=== PATIENT | female | born 1950 | race Caucasian/White ===

== ENCOUNTER 2016-11-09 15:21 | Inpatient (IN) | payer MEDICARE, MEDICAID ==
[~2016-11-09] VITALS: Ht 157.5 cm; Wt 95.2 kg
--- NOTE | ~2016-11-09 | ER ---
PATIENT'S NAME: [facility] AGE: 66 Y [address] ROOM: [place] [address] LOCATION: [facility] ADMIT DATE: 11/09/2016 ER/Outpatient Report DISCHARGE DATE: FAMILY PHYSICIAN: Epifanio Wheeler MD ATTENDING PHYSICIAN: Yohana Ramos Time of Arrival: 1522 hours. Time of Evaluation: 1535 hours. CHIEF COMPLAINT: Shortness of breath. HISTORY OF PRESENT ILLNESS: The patient states she just does not feel like she can get a deep breath, started yesterday. Has had some generalized discomfort in her chest when she goes to take a deep breath. States it is not chest pain, it is just I feel like I cannot get a deep breath in. Has a cough, nonproductive. States that she feels really wore out. States she recently had pneumonia, was seen here on 10/20/2016, was home on antibiotics, and was cleared to have surgery, and on 10/28/2016, she had a total hysterectomy done at [facility] in [place]. States that she is doing well with that, seemed to be doing much better until this episode started last night. She denies feeling febrile. Has not had any change in bowel or bladder pattern. Has not had any leakage from the incisional sites. ALLERGIES: SULFA. CURRENT MEDICATIONS: On her chart and reviewed by me. PAST MEDICAL HISTORY: Recent pneumonia, hypertension, depression, Raynaud syndrome, and uterine cancer. PAST SURGERIES: Total hysterectomy. REVIEW OF SYSTEMS: All negative other than those mentioned in the HPI. PHYSICAL EXAMINATION: VITAL SIGNS: She weighed 103.7 kg. Blood pressure was 171/71, pulse of 83, respirations 20, temperature of 99.4 tympanic, and O2 saturation was 93% on room air. PATIENT'S NAME: [facility] AGE: 66 Y [address] ROOM: [place] [address] LOCATION: [facility] ADMIT DATE: 11/09/2016 ER/Outpatient Report DISCHARGE DATE: FAMILY PHYSICIAN: Epifanio Wheeler MD ATTENDING PHYSICIAN: Yohana Ramos GENERAL: She is awake, alert, and oriented x4. SKIN: Veazie, warm, and dry. RESPIRATIONS: Even and nonlabored. Nasal is boggy. Oropharynx is clear. NECK: Supple. No lymphadenopathy. LUNGS: Lung sounds are clear throughout. HEART: Regular rate and rhythm. ABDOMEN: Soft, nondistended. Bowel sounds are present. Abdominal puncture sites are non-reddened. Dressings are intact. No drainage noted. EMERGENCY ROOM COURSE: Saline lock was initiated. Lab work was drawn. CBC is within normal limits. Chem panel: Sodium is 145, potassium is 3.3, chloride is 112, BUN is 8, creatinine is 1. GFR was 56. D-dimer was 6.81. Radiologist reports on the chest x-ray that looked like she had increased fluid. On the CT scan, the radiologist reports that she did not have pulmonary emboli. However, she did have a large pleural effusion than what she had on 10/20/2016. She has pulmonary edema and ascites. On lab work, her liver enzymes are all within normal with a total bilirubin of 0.3. We had started some fluids on her after the CT because of her GFR being 56. We did turn that down and gave her Lasix 40 mg IV and potassium 40 mg p.o. Her proBNP was elevated at 1585. I did call Dr. Wheeler and talk with him regarding the patient. The patient was given the option of either going home on Lasix and seeing him tomorrow per his request or she could be admitted and he would take care of her in the hospital. The patient states that she prefers to stay here in the hospital. IMPRESSION: Pulmonary edema, pleural effusion. PLAN: The patient will be placed in observation for care of Dr. Wheeler. BRENNEN GERBER APRN FOR MD JAMES SOUSA/aakash /[id number] d: 11/10/16212 t: 11/24/16 0702, OUTPATIENT REPORT
--- NOTE | ~2016-11-09 | HP ---
PATIENT'S NAME: RENETTA SALASARA [facility] AGE: 66 Y [address] ROOM: [place] [address] LOCATION: [facility] ADMIT DATE: 11/10/2016 History & Physical DISCHARGE DATE: FAMILY PHYSICIAN: QUIQUE ORTIZ MD ATTENDING PHYSICIAN: QUIQUE ORTIZ DATE OF SERVICE: 11/09/2016 CHIEF COMPLAINT: Shortness of breath. HISTORY OF PRESENT ILLNESS: The patient is a 66 year old single white female who just took a trip down to [place] and had her uterus removed for uterine cancer. She presents to the emergency room today complaining of shortness of breath. She was seen by the nurse practitioner here and was found to have on chest x-ray a suggestion of fluid so a CAT scan was done because her D-dimer . Her CAT scan does not reveal pulmonary embolus but rather little bit of fluid in her lower lung palomo. No jennie pneumonia but possibly ascites or postop fluid in her belly. My clinical impression is when I see in the emergency room is that she may have developed some congestive heart failure. So, we will admit her to the hospital and obtain cardiac consultation. She understands and wishes to stay in the hospital. I talked to Dr. Jarrell, the ex assistant/program director with [facility] and the patient has had a nice response to diuretic. The patient will be admitted to PCU overnight and we will reassess in the morning. An echocardiogram has been ordered per the ex assistant/program director. When I see her, she does not give a history of fever. She does not know her exact path report postop with her hysterectomy. She has not had any history of asthma that I know of where she has never had a history congestive heart failure prior to this time. MEDICINES: Reviewed. ALLERGIES: NOTED. SOCIAL HISTORY: Doesn't smoke. PATIENT'S NAME: RENETTA SALASARA [facility] AGE: 66 Y [address] ROOM: [place] [address] LOCATION: GPCU ADMIT DATE: 11/10/2016 History & Physical DISCHARGE DATE: FAMILY PHYSICIAN: QUIQUE ORTIZ MD ATTENDING PHYSICIAN: QUIQUE ORTIZ FAMILY HISTORY: See nurse's notes. IMMUNIZATIONS: I believe she is up-to-date. We will check the office records. REVIEW OF SYSTEMS: HEENT: She has had no recent visual changes. She does wear glasses. ENDOCRINE: See nurse's notes. LUNGS: As above. HEART: As above. GI: No recent nausea, vomiting, diarrhea, or melena. : As above. EXTREMITIES: Show trace edema that looks new. NEUROLOGIC: No prior history of stroke or seizure. PHYSICAL EXAMINATION: GENERAL: Middle-aged white female, lying on the cart in the hospital ER. She is oriented to person, place, and time, and I believe to be confident. HEENT: Shows her to wear glasses. Her pupils react to light. TMs not visualized. Posterior pharynx shows mucous membranes are moist. NECK: Unremarkable. I do not see any jennie JVD. LUNGS: Show decreased breath sounds. HEART: Shows regular rhythm without murmur or rub. ABDOMEN: Mildly obese. I did not check her wound. PELVIC AND RECTAL: Not done. EXTREMITIES: Show trace edema. Pulses intact. NEUROLOGIC: Shows cranial nerves intact. No lateralizing signs. ASSESSMENT: Acute dyspnea with increased fluid in lung palomo consistent with new-onset congestive heart failure, type unspecified, probably mixed. PLAN: Per history. QUIQUE ORTIZ MD TOBY MAKER/modl /[id number] D: T: 034 HISTORY & PHYSICAL
--- NOTE | ~2016-11-09 | ECHO ---
Transthoracic Echocardiography Report (TTE) Demographics Patient Name DELON SALAS Date of Study 11/10/2016 Patient Number [id number] Visit Number [id number] Date of 1950 Room Number G6315 Gender Female Number Age 66 year(s) Referring [employer] Business Process Architect Jennie Dubose [facility] Physician MD Wesly Mcdonough MD Physician Interpreting Wesly Garces Director Veterinary Physician Supervising Ordering Wesly Garces MD/MLP Physician Nurse Stress Optical Glass Etcher Conclusions Contractility Score Summary Normal Left Ventricular contractility was noted. Summary Normal LV/RV size and systolic function. The estimated left ventricular ejection fraction is 65-70%. Mild concentric left ventricular hypertrophy. Diastolic assessment reveals Grade II pseudonormal diastolic function . The left atrium is mildly dilated. Dilated IVC with poor inspiratory collapse consistent with elevated RA pressure. There is mild pulmonary hypertension. The pulmonary pressure (RVSP) is 47 mmHg. Mild mitral regurgitation by color Doppler. Procedure Type of Study TTE procedure:2D Echocardiogram, M-Mode, Doppler , Color Doppler. Procedure Date Date: 11/10/2016 Start: 07:37 AM Study Location: Inpatient Portable Technical Quality: Adequate visualization Indications:Congestive heart failure and Shortness of breath. Appropriate Use Criteria: 9 Patient Status: Routine HR: 73 bpm BP: 153/81 mmHg M-Mode/2D Measurements LV Diastolic Dimension: 5.21 cm LV Systolic Dimension: 3.2 cm LV Septum Diastolic: 1.13 cm LV PW Diastolic: 1.19 cm AO Root Dimension: 2.7 cm Cardiac Output: 4.32 l/min AV Cusp Separation: 1.5 cm RV Diastolic Dimension: 2.6 cm LA volume: 78 ml LVOT: 1.7 cm RV Base: 3.45 cm LVOT VTI: 26.1 cm RV Mid: 2.95 cm LV Stroke volume: 59.21 ml TAPSE: 2.24 cm TDI-S': 13.7 cm/s Doppler Measurements AV Peak Velocity: 1.5 m/s MV Peak E-Wave: 1.4 m/s AV Peak Gradient: 9 mmHg MV Peak A-Wave: 0.69 m/s AV Mean Gradient: 4 mmHg MV E/A Ratio: 2.03 LVOT Peak Velocity: 1.28 m/s MV P1/2t: 49 msec TR Gradient:31.58 mmHg PV Peak Velocity: 1.08 m/s Estimated RAP:15 mmHg PV Peak Gradient: 4.67 mmHg Estimated RVSP: 47 mmHg Estimated PASP: 46.58 mmHg E' Septal Velocity: 0.07 m/s A' Septal Velocity: 0.05 m/s E' Lateral Velocity: 0.06 m/s A' Lateral Velocity: 0.05 m/s Findings Left Ventricle The left ventricle is normal in size . Mild concentric left ventricular hypertrophy. Diastolic assessment reveals Grade II pseudonormal diastolic function . Right Ventricle Normal right ventricle structure and function. Left Atrium The left atrium is mildly dilated. Right Atrium Normal right atrial size. Dilated IVC with poor inspiratory collapse consistent with elevated RA pressure. IVC measures 2.2 cms. Mitral Valve Mild mitral annular calcification. Mild mitral regurgitation by color Doppler. Aortic Valve Normal aortic valve structure and function. Tricuspid Valve Normal tricuspid valve structure and function. Mild tricuspid regurgitation by color Doppler. There is mild pulmonary hypertension. The pulmonary pressure (RVSP) is 47 mmHg. Pulmonic Valve The pulmonic valve is not well visualized. Pericardial Effusion No evidence of pericardial effusion. Miscellaneous Visualized portions of the aortic root and ascending aorta appear normal in size. Pleural Effusion No evidence of pleural effusion. Contractility Score LV regional wall motion:(0-Non visualized 1-Normal 2-Hypokinesis 3-Akinesis 4-Dyskinesis 5-Aneurysm) Signature dtt: NAVEEN HEBERT dtd: 11/10/16 0737 Physician Self Edit
--- NOTE | ~2016-11-09 | CON ---
PATIENT'S NAME: [facility] AGE: 66 Y [address] ROOM: [address] [place], [place] [address] LOCATION: GPCU ADMIT DATE: 11/09/2016 Consultation DISCHARGE DATE: FAMILY PHYSICIAN: QUIQUE WHEELER MD ATTENDING PHYSICIAN: QUIQUE WHEELER DATE OF CONSULTATION: 11/09/2016 REFERRING PHYSICIAN: Quique Wheeler MD REASON FOR CONSULTATION: Shortness of breath. HISTORY OF PRESENTING ILLNESS: The patient is a very pleasant, 66-year-old female, who has history of diabetes mellitus and hypertension. She also was recently diagnosed with uterine cancer, status post laparoscopic hysterectomy just a few weeks ago at [place]. The patient came into the emergency room on October 31 with complaints of shortness of breath and she was treated with acute bronchitis and URI and started on Z-Lamont and she completed a course of that. She comes back in today with complaints of worsening shortness of breath as well as dyspnea on exertion and inability to lay flat due to shortness of breath as well as weight gain for the past week or so. Her symptoms of shortness of breath have been significantly worse in the past 1-2 days. She reports she has been taking ibuprofen 800 mg 3 times a day for pain control after her hysterectomy. She also reports increasing her salt intake, has been drinking a lot of canned soup in the recent past. No other new medications started. She does not have any fever, chills, abdominal pain, nausea, vomiting, diarrhea, constipation, skin rashes, or stroke-like symptoms. No chest pain, tightness, pressure, or heaviness. She does not have any other acute complaints today. She has gained about 5 pounds in the recent past. Her baseline weight is about 214 and she weighs 219 pounds today. She is diuresing very well with 40 mg of IV Lasix that was given in the emergency room. REVIEW OF SYSTEMS: A 10-point review of systems discussed with patient. Pertinent positives and negatives mentioned in the history of presenting illness. ALLERGIES: SULFA CAUSES RASH. HOME MEDICATIONS: 1. Lortab 1-2 tablets q.4 hours p.r.n. pain. 2. Ibuprofen 800 q.8 hours p.r.n. pain. PATIENT'S NAME: [facility] AGE: 66 Y [address] ROOM: [id number] [place], [place] [address] LOCATION: GPCU ADMIT DATE: 11/09/2016 Consultation DISCHARGE DATE: FAMILY PHYSICIAN: QUIQUE WHEELER MD ATTENDING PHYSICIAN: QUIQUE WHEELER 3. Pravachol 40 mg p.o. daily. 4. Celexa 20 mg p.o. daily. 5. Atenolol 50 mg p.o. b.i.d. 6. Neurontin 300 mg p.o. b.i.d. 7. Trazodone 100 mg at bedtime p.r.n. 8. She is on alogliptin and pioglitazone tablet 25-30 mg p.o. daily. 9. She is on vitamin D3 2000 daily. 10. MiraLAX p.r.n. PAST MEDICAL HISTORY: Hypertension; depression; Raynaud's; and recent diagnosis of cancer of the uterus, suspected endometrial carcinoma, status post hysterectomy. SOCIAL HISTORY: She drinks socially. No history of alcohol or illicit drug abuse. No history of tobacco abuse. FAMILY HISTORY: There is no premature coronary artery disease or sudden cardiac . PHYSICAL EXAMINATION: VITAL SIGNS: Blood pressure 140/80, O2 saturations 100% on 2 L of oxygen, and respirations 16. She is not in any pain and she is afebrile. GENERAL: The patient is not in any apparent distress. The patient is alert and oriented to time, place, and person. She is not in any apparent distress. NECK: Supple. No JVD. SKIN: Warm and dry. LUNGS: Decreased breath sounds in the right base, decreased air exchange bilaterally. HEART: S1-S2, regular rate and rhythm. No murmurs, gallops, or rubs. ABDOMEN: Obese. Bowel sounds positive. Soft. EXTREMITIES: 3+ bilateral pitting edema. EYES: Sclera white. Eyes, no xanthelasma. MUSCULOSKELETAL: Joints, without any significant swelling. NEURO: Grossly normal. Able to move all extremities against gravity. LABORATORY DATA: Sodium 145, potassium 3.3, chloride 112, CO2 23, BUN 8, and creatinine 1, alkaline phosphatase 63, AST 12, ALT 14, and GFR 56. Amylase 74. ProBNP is elevated at 1585. WBC 9.5, H and H 10.3 and 34.5, platelets are 352. A CT scan of the chest shows no PE, however, she does have a small indeterminate right middle lobe pulmonary nodule. Recommend followup in 3-6 months. Edema, fluid overload has increased compared to 2 weeks ago. EKG pending. PATIENT'S NAME: DELON SALAS [facility] AGE: 66 Y [address] ROOM: [place] [address] LOCATION: GPCU ADMIT DATE: 11/09/2016 Consultation DISCHARGE DATE: FAMILY PHYSICIAN: QUIQUE WHEELER MD ATTENDING PHYSICIAN: QUIQUE WHEELER IMPRESSION AND PLAN: 1. Acute congestive heart failure exacerbation with evidence of volume overload with [place] Heart Association class III symptoms. We do not have a prior echocardiogram and her left ventricular systolic function is not known. At this time, I think she went into the CHF given her increased intake of ibuprofen as well as salt intake; post surgery, she has gained 5 pounds; she describes classic symptoms of heart failure with shortness of breath, dyspnea on exertion, orthopnea, lower extremity edema, as well as weight gain. If her LV systolic function is low, it may be reasonable to stop the pioglitazone as that can exacerbate CHF. She needs to completely avoid ibuprofen and NSAIDs at this time. Pain controlled with Tylenol and narcotics as necessary. I will also rule her out MD, but however, I do not suspect any significant obstructive coronary artery disease. She really denies any anginal symptoms. I will review the ECG once it is done. We will get serial enzymes and get an echocardiogram to assess her LV systolic function as well as her valves in the morning. 2. I will replace her potassium that is slightly low and we will continue diuresis with 40 mg of Lasix and see how she does. 3. History of uterine/endometrial carcinoma, status post surgery. 4. Hypokalemia. We will replace her potassium. 5. Diabetes mellitus. Continue home medications. We will check an A1c in the morning. 6. ECG is normal sinus rhythm today without any evidence of ischemia or injury pattern. Her QTc is slightly prolonged at 454 milliseconds. We will continue to follow the patient along with you. Thank you very much, Dr. Wheeler, for allowing us to participate in the care of Mrs. Salas. NAVEEN MD ABDIFATAH HEBERT/aakash /[id number] d: 11/10/16 0335 t: 11/15/16 1734, CONSULTATION REPORT
--- NOTE | ~2016-11-09 | DS ---
PATIENT'S NAME: GERRI SALAS [facility] AGE: 66 Y [address] ROOM: [address] [place], [place] [address] LOCATION: GPCU ADMIT DATE: 11/10/2016 Discharge Summary DISCHARGE DATE: 11/12/2016 FAMILY PHYSICIAN: Quique Ortiz MD ATTENDING PHYSICIAN: Quique Ortiz FINAL DIAGNOSES: 1. Acute dyspnea secondary to acute diastolic congestive heart failure, new diagnosis, functional class III. 2. Recent uterine surgery, diagnosed with uterine cancer, see path report. 3. Diabetes mellitus type 2, treated with oral agents. 4. Hyperlipidemia by history. 5. Major depression, in remission. 6. Hypokalemia, replaced. 7. Raynaud phenomenon. HOSPITAL COURSE: Gerri is a 66-year-old white female whom I have known for years, who was admitted to the hospital for acute dyspnea. I asked for cardiac consultation and Dr. Avalos, the certified nuclear medicine technologist from [facility], saw the patient along with her physician dietary assistant. Please see notes on the chart. 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 The patient was treated with IV diuresis, her beta-nini was changed to Toprol-XL and she was started on an LEANDRO inhibitor. She responded well, lost about 10 or 12 pounds of fluid. Prior to going to the home, she is ambulating without symptoms. Her O2 saturation is normal. She is much less dyspneic. She is dismissed on the med list shown including a new LEANDRO inhibitor, diuretic, and potassium replacement. She will see me in the office in [address] week[address] see Dr[address] Avalos, the certified nuclear medicine technologist, back in [address] Avalos's notes on the chart, dictation and echocardiogram report which I have not read yet. If she has increasing shortness of breath, leg cramps, or fatigue, she is to be seen back earlier and she understands. QUIQUE ORTIZ MD INFORMATICS SPECIALIST/markl PATIENT'S NAME: GERRI SALAS [facility] AGE: 66 Y [address] ROOM: [place] [address] [facility] ADMIT DATE: 11/10/2016 Discharge Summary DISCHARGE DATE: 11/12/2016 FAMILY PHYSICIAN: Quique Ortiz MD ATTENDING PHYSICIAN: Quique Ortiz /[id number] d: 11/12/16 1054 t: 11/13/16 1036, DISCHARGE SUMMARY
[2016-11-09 16:00] LABS: BASOPHIL % 0.3 %; EOSINOPHIL # 0.1 K/uL (0.0-0.5); EOSINOPHIL % 0.6 %; HEMATOCRIT 34.5 % (33.0-46.0); HEMOGLOBIN 10.3 g/dL (10.0-15.0); IMMATURE GRANULOCYTE # 0.1 K/uL (0.0-0.3); IMMATURE GRANULOCYTE % 0.7 %; LYMPHOCYTE # 0.9 K/uL (0.8-4.0); LYMPHOCYTE % 9.9 %; MCH 23.6 pg (27.0-34.0); MCHC 29.9 gm/dL (32.0-36.5); MCV 79.1 fl (83.0-98.0); MONOCYTE # 0.5 K/uL (0.0-1.0); MONOCYTE % 5.3 %; MPV 10.4 fl (9.4-12.4); NEUTROPHIL # (ANC) 7.9 K/uL (1.8-7.8); NEUTROPHIL % 83.2 %; NRBC % 0 /100WBC (0-0.00); PLATELET COUNT 352 K/uL (150-450); RBC 4.36 M/uL (3.50-5.50); WBC 9.5 K/uL (4.0-11.0)
[2016-11-09 16:16] LABS: ALBUMIN 2.6 gm/dL (3.5-5.0); ANION GAP 13.3 (10.0-19.0); CALCIUM 8.2 mg/dL (8.5-10.5); POTASSIUM 3.3 mMol/L (3.7-5.1); TOTAL PROTEIN 6.4 g/dL (6.0-8.4)
[2016-11-09 16:17] LABS: TOTAL BILIRUBIN 0.3 mg/dL (0.0-1.5)
[2016-11-09] MEDS ORDERED: NORCO 5-325 TA1 EACH PO (19:49)
[2016-11-09] MEDS ORDERED: PRAVACHOL40 MG PO (19:50)
[2016-11-09] MEDS ORDERED: CELEXA20 MG PO (19:50)
[2016-11-09] MEDS ORDERED: IBUPROFEN800 MG PO (19:50)
[2016-11-09] MEDS ORDERED: TENORMIN50 MG PO (19:50)
[2016-11-09] MEDS ORDERED: NEURONTIN300 MG PO (19:51)
[2016-11-09] MEDS ORDERED: GABAPENTIN300 MG PO (19:51)
[2016-11-09] MEDS ORDERED: TRAZODONE HCL100 MG PO (19:52)
[2016-11-09] MEDS ORDERED: OSENI 25-30 MG1 EACH PO (19:52)
[2016-11-09] MEDS ORDERED: VITAMIN D-32000 UNI1 PO (19:52)
[2016-11-09] MEDS ORDERED: EYE VITAMIN-MI1 EACH PO (19:53)
[2016-11-09] MEDS ORDERED: SYSTANE ULTRA 010 ML OPHTH (20:11)
[2016-11-09 22:15] LABS: CPK 34 IU/L (21-215)
[2016-11-10 04:54] LABS: ALBUMIN 2.5 gm/dL (3.5-5.0); ALK PHOS 59 IU/L (33-138); ALT 14 IU/L (12-78); ANION GAP 12.7 (10.0-19.0); AST 13 IU/L (10-40); BLOOD UREA NITROGEN 8 mg/dL (6-24); CALCIUM 8.3 mg/dL (8.5-10.5); CHLORIDE 111 mMol/L (96-110); CO2 25 mMol/L (22-32); CPK 36 IU/L (21-215); ESTIMATED GFR (MDRD EQUATION) 56; POTASSIUM 3.7 mMol/L (3.7-5.1); SODIUM 145 mMol/L (135-145); TOTAL PROTEIN 6.1 g/dL (6.0-8.4)
[2016-11-10 04:56] LABS: TOTAL BILIRUBIN 0.4 mg/dL (0.0-1.5)
[2016-11-11 04:27] LABS: ANION GAP 12.7 (10.0-19.0); CALCIUM 8.4 mg/dL (8.5-10.5); CREATININE 1.1 mg/dL (0.5-1.1); POTASSIUM 3.7 mMol/L (3.7-5.1)
[2016-11-12 04:26] LABS: ANION GAP 13.6 (10.0-19.0); CALCIUM 8.6 mg/dL (8.5-10.5); POTASSIUM 3.6 mMol/L (3.7-5.1)
[2016-11-12] MEDS ORDERED: LASIX20 MG PO (10:49)
[2016-11-12] MEDS ORDERED: ZESTRIL2.5 MG PO (10:50)
[2016-11-12] MEDS ORDERED: TOPROL XL 5050 MG PO (10:50)
[2016-11-12] MEDS ORDERED: K-TAB 10MEQ10 MEQ PO (10:51)
[2016-11-12] MEDS ORDERED: TEARS AGAIN EYE5 GM (10:58)
== END 2016-11-12 11:55 | disposition disaster alternative care site (69) | DRG 292 ==
LOC: GMED 15:21 → GPCU 18:53
PROVIDERS: Internal Medicine Interventional Cardiology; Nurse Practitioner Family; ADMIT Family Medicine
DX: I50.31 Acute diastolic (congestive) heart failure (principal); Z68.41 Body mass index [BMI] 40.0-44.9, adult; I10 Essential (primary) hypertension; E11.9 Type 2 diabetes mellitus without complications; D64.9 Anemia, unspecified; E78.5 Hyperlipidemia, unspecified; Z85.42 Personal history of malignant neoplasm of other parts of uterus; I73.00 Raynaud's syndrome without gangrene; E87.6 Hypokalemia; E66.01 Morbid (severe) obesity due to excess calories
CPT/HCPCS: G0378; J1940; J7030

== ENCOUNTER 2017-03-24 12:30 | Inpatient (IN) | payer MEDICARE, MEDICAID ==
[~2017-03-24] VITALS: Ht 152.4 cm; Wt 67.4 kg
--- NOTE | ~2017-03-24 | HP ---
PATIENT'S NAME: DELON SALAS [facility] AGE: 67 Y [address] ROOM: [id number] [place], [place] [address] [place] [facility] [place]: 03/24/2017 History & Physical DISCHARGE DATE: FAMILY PHYSICIAN: QUIQUE WHEELER MD ATTENDING PHYSICIAN: Bhavana VELAZQUEZ DATE OF SERVICE: CHIEF COMPLAINT: C. diff. HISTORY OF PRESENT ILLNESS: The patient is a 67-year-old female with past medical history of recently diagnosed endometrial carcinoma, stage III, status posterior MAGED/BSO and chemotherapy with carboplatin and Taxol, who presents here with failed outpatient treatment of C. diff. The patient reports that she was diagnosed with C. difficile after she was complaining of diarrhea. The patient was started on Flagyl on 03/03/2017 with 500 mg t.i.d. for 10 days. However, symptoms did not improve and the patient continued to have diarrhea. The patient was seen by Dr. Patrick' office yesterday on March 23, 2017, and was restarted back on Flagyl 500 mg t.i.d. However, the patient continued to have diarrhea, generalized fatigue, and dehydration. The patient was also noted to have hypokalemia and was treated at Dr. Patrick' office with IV potassium. The patient presented to Oncology office, the patient was seen by the Dr. Estes today. The patient once again was noted to be dehydrated and was given 1 L normal saline bolus, magnesium was found to be 1.6, and potassium was found to be 2.4. The patient got 20 mEq of IV potassium and was admitted directly from Dr. Estes's office, as the patient has failed outpatient treatment for C. diff. The patient reports that she has close to 6-7 episodes of diarrhea a day. She denies any blood in diarrhea. She reports that she has been really fatigued and unstable with her gait. The patient lives by herself and reports that she is not able to take care of herself and has not had a bath for quite a while. The patient denies fever, chills, chest pain, shortness of breath, abdominal pain, nausea, vomiting, headache, or vision change. The patient reports of a few-day history of dry cough. However, she reports that lately she has been producing some yellow sputum with her cough. The patient also reports of poor appetite and some weight loss. The patient has finished her chemotherapy and workup for possible radiation treatment. MEDICAL HISTORY: 1. Endometrial cancer. 2. Hypertension. 3. Diastolic CHF. PATIENT'S NAME: DELON SALAS [facility] AGE: 67 Y [address] ROOM: [place] [address] [place] [facility] [place]: 03/24/2017 History & Physical DISCHARGE DATE: FAMILY PHYSICIAN: QUIQUE WHEELER MD ATTENDING PHYSICIAN: Bhavana VELAZQUEZ 4. Depression. 5. Pulmonary nodule of right lung. SURGICAL HISTORY: 1. MAGED-BSO. 2. Sinus surgery. FAMILY HISTORY: Dad had a stroke. Mother also had a history of stroke. SOCIAL HISTORY: The patient is on disability. She lives by herself. Denies drinking or smoking. The patient is not , does not have kids, and her POA is her brother, Roverto Salas. MEDICATIONS: Currently being reconciled. REVIEW OF SYSTEMS: All systems have been reviewed and are negative except for what I mentioned in the HPI. PHYSICAL EXAMINATION: VITAL SIGNS: Blood pressure 128/74, heart rate of 82, respiratory rate of 17, and saturating 99% on room air. HEAD: The patient is bald. Atraumatic. GENERAL APPEARANCE: The patient has poor hygiene, in no acute distress, sitting on the bed. CHEST: Clear to auscultation bilaterally. EYES: Extraocular muscles intact. Sclerae nonicteric. NOSE: No nasal discharge. MOUTH: Dry oral mucosa. HEART: Regular rate. No murmurs, rubs, or gallops. ABDOMEN: Soft, nontender, and nondistended. Bowel sounds present. SKIN: Warm to touch. MUSCULOSKELETAL: Range of motion intact. No obvious joint effusion. RETAIL SALES MANAGER: The patient alert and awake. Motor and sensory grossly intact. EXTREMITIES: The patient is wearing gloves due to Raynaud syndrome. Hands and fingers look appropriate. LABORATORY DATA: Lab done at the outside hospital shows magnesium 1.6, potassium of 2.4, BUN of 4, glucose of 116, albumin of 3.3, total bilirubin 0.6, creatinine of 0.9, and sodium of 144. PATIENT'S NAME: DELON SALAS [facility] AGE: 67 Y [address] ROOM: [id number] [place], [place] [address] [place] [facility] [place]: 03/24/2017 History & Physical DISCHARGE DATE: FAMILY PHYSICIAN: QUIQUE WHEELER MD ATTENDING PHYSICIAN: Bhavana VELAZQUEZ White blood cell of 2.58, hemoglobin of 8.7, hematocrit of 27, and platelets of 111. ASSESSMENT AND PLAN: 1. Clostridium difficile. The patient is presenting with failed outpatient treatment of Clostridium difficile. We will change Flagyl to vancomycin 125 mg p.o. q.6 hours. We will acquire lactate level. We will continue IV fluid. We will put the patient on Clostridium difficile precaution. 2. Hypokalemia, etiology most likely secondary to diarrhea. We will supplement potassium. To repeat CMS. 3. Hypomagnesemia, etiology most likely secondary to diarrhea. We will give 2 g IV magnesium. We will follow labs closely. 4. Dehydration. Continue IV fluid treatment. 5. Cough. Lung examination clear to auscultation bilaterally. The patient has a history of a pulmonary nodule in the past. We will acquire a CT chest to further both investigate pulmonary nodule as she is due for the followup and also if there are any infiltrates suggesting pneumonia. We will follow with results closely. 6. Pancytopenia, etiology most likely secondary to chemotherapy. We will follow closely. 7. Moderate protein calorie malnutrition. The patient reports of weight loss and poor appetite. We will have dietitian consult. 8. Raynaud syndrome, ongoing. 9. Diastolic congestive heart failure, appears compensated. We will hold diuretics, as the patient admits having several diarrhea and also is hypokalemic. 10. Depression. Continue Cymbalta. 11. Poor hygiene. To have a bath during her stay. 12. Physical deconditioning. PT/OT. Greater than 70 minutes was spent on the patient's care. Greater than 50% of time was spent on direct the patient's care. Case was discussed with primary care physician, Dr. Wheeler. Case was also discussed with Dr. Spicer who is an oncologist/radiologist. The patient is to have radiation as an outpatient after this mission. Also, case was discussed with Dr. Estes, oncologist covering for Dr. Patrick. The patient's questions were answered with satisfaction. We will admit the patient as an inpatient as she failed outpatient treatment for Clostridium difficile. MD SAKINA BRODERICK/aakash PATIENT'S NAME: DELON SALAS [facility] AGE: 67 Y [address] ROOM: [place] [address] [place] [facility] [place]: 03/24/2017 History & Physical DISCHARGE DATE: FAMILY PHYSICIAN: QUIQUE WHEELER MD ATTENDING PHYSICIAN: Bhavana VELAZQUEZ /[id number] D: [id number] T: [id number] HISTORY & PHYSICAL
--- NOTE | ~2017-03-24 | CON ---
PATIENT'S NAME: DELON SALAS [facility] AGE: 67 Y [address] ROOM: [place] [address] LOCATION: [facility] [place] ADMIT DATE: 03/24/2017 Consultation DISCHARGE DATE: FAMILY PHYSICIAN: QUIQUE ORTIZ MD ATTENDING PHYSICIAN: Bhavana VELAZQUEZ DATE OF CONSULTATION: 03/29/2017 REFERRING PHYSICIAN: Zbigniew Estes MD REFERRING PROVIDER: Leonela Raines MD REASON FOR CONSULTATION: C diff. HISTORY OF PRESENT ILLNESS: This is a very pleasant, 67-year-old female with a past medical history, recently diagnosed with endometrial carcinoma, stage III, status post MAGED-BSO, and currently on chemotherapy. The patient previously was diagnosed with C diff "a few months ago." She has now since failed outpatient treatment and was admitted for continued complaints of diarrhea. She previously had been on Flagyl for 10 days with no improvement of her symptoms. She was re-evaluated in Dr. Patrick' office on March 23, 2017, and restarted back on Flagyl. She continued to have loose bowel movements, generalized fatigue, as well as dehydration. She was also noted to have hypokalemia and did receive IV potassium. She again was evaluated and was also found to have dehydration with hypomagnesemia as well as hypokalemia. The patient was then admitted to [facility] for further workup. The patient was seen and examined. At this time, she is complaining of 7 to 8 bowel movements per day. She does state that there is no formed stool. She denies any noticeable blood in the stool to her knowledge. She denies any associated fever, chills, chest pain, shortness of breath, or abdominal pain. She also denies any preceding abdominal cramping with every bowel movement. PAST MEDICAL HISTORY: Endometrial cancer, hypertension, diastolic congestive heart failure, depression, and pulmonary nodule of the right lung. PAST SURGICAL HISTORY: MAGED-BSO and sinus surgery. She does report having a colonoscopy greater than 10 years ago. SOCIAL HISTORY: The patient is on disability, lives by herself, and denies any ongoing toxic PATIENT'S NAME: RENETTA SALASARA [facility] AGE: 67 Y [address] ROOM: [place] [id number] LOCATION: [facility] [place] ADMIT DATE: 03/24/2017 Consultation DISCHARGE DATE: FAMILY PHYSICIAN: QUIQUE ORTIZ MD ATTENDING PHYSICIAN: Bhavana VELAZQUEZ. FAMILY HISTORY: The patient's father had a stroke. The patient's mother also had a stroke. ALLERGIES: SULFA AND QUINOLONES. CURRENT MEDICATIONS: Please refer to the medication administration record. REVIEW OF SYSTEMS: An all-point review of systems was completed, all were negative except for those identified in the History of Present Illness. PHYSICAL EXAMINATION: GENERAL: A pleasant, 67-year-old female who appears to be in no acute distress. VITAL SIGNS: Temperature 97.7, pulse of 81, respirations of 18, blood pressure 136/71, and oxygen saturation is 95% on room air. SKIN: [place], warm, and dry. No jaundice. HEENT: Head is normocephalic and atraumatic. Pupils are equal, round, and reactive to light. Sclerae are clear, nonicteric. Oral mucosa is pink and moist. No thyromegaly. NECK: Soft and supple. CARDIOVASCULAR: Regular. Normal S1 and S2. RESPIRATORY: Respirations even and unlabored. Lungs are clear to auscultation, slightly diminished in the bilateral lobes. ABDOMEN: Soft, round, nontender, and nondistended. Bowel sounds positive x4 quadrants. MUSCULOSKELETAL: No muscle weakness or atrophy. EXTREMITIES: No clubbing, cyanosis, or edema. NEUROLOGIC: Grossly nonfocal. LABORATORY AND DIAGNOSTIC DATA: White blood cell count of 7.8, hemoglobin 8.0, hematocrit of 25.4, and platelets of 95. Chemistry panel includes a glucose of 115, BUN of 4, creatinine 0.9, sodium 140, potassium of 4.4, chloride of 108, and CO2 of 24. Albumin of 2.4. AST of 15, ALT of 18, and alkaline phosphatase of 78. Total bilirubin is 0.3. No recent stool workup has been completed. ASSESSMENT AND PLAN: Again, this is a very pleasant, 67-year-old female who was admitted to [facility] for failed outpatient treatment for Clostridium difficile resulting in dehydration, hypokalemia, as well as hypomagnesemia. The patient PATIENT'S NAME: DELON SALAS [facility] AGE: 67 Y [address] ROOM: [facility] [place] [place], [place] [address] LOCATION: [facility] [place] ADMIT DATE: 03/24/2017 Consultation DISCHARGE DATE: FAMILY PHYSICIAN: QUIQUE ORTIZ MD ATTENDING PHYSICIAN: Bhavana VELAZQUEZ currently is on vancomycin 125 mg. At this time, we will recommend to increase this to 250 mg p.o. every 6 hours. We will also add cholestyramine 4 g t.i.d. for assistance of bulking the stool. It was also discussed with the patient we will recheck stool studies. If continued failure to improve, possible colonoscopy would be warranted at that time. The patient verbalizes understanding. Further recommendations to be given over the course of the patient's hospitalization stay. Thank you for this consult. ALINA VILLATORO APRN FOR LYLE BROWNING MD MMF/modl /[id number] d: 03/30/17 1534 t: 03/31/17 1255, CONSULTATION REPORT
--- NOTE | ~2017-03-24 | DS ---
PATIENT'S NAME: DELON SALAS [facility] AGE: 67 Y [address] ROOM: [id number] [place] [id number] LOCATION: [facility] [place] ADMIT DATE: 03/24/2017 Discharge Summary DISCHARGE DATE: 05/24/2017 FAMILY PHYSICIAN: pEifanio Wheeler MD ATTENDING PHYSICIAN: Bhavana Andrade DISCHARGE DIAGNOSES: 1. C. diff colitis, chronic diarrhea. 2. Endometrial carcinoma. 3. Pulmonary nodule. 4. Depression. 5. Hypertension. 6. Diastolic congestive heart failure. 7. Vomiting. 8. Raynaud's. CONSULTING PHYSICIANS: Dr. Torres, Dr. Leahy, and Dr. Spicer. HOSPITAL COURSE: Please refer to admitting history and physical as dictated by Dr. Andrade. Briefly, the patient was admitted to [facility] with C. diff colitis. She was started on vancomycin 125 mg p.o. every 6 hours. She was started on Lovenox for DVT prophylaxis. Physical Therapy and Occupational Therapy were consulted for her generalized weakness. Oncology was consulted for her history of endometrial cancer. She was given IV magnesium as well as potassium for electrolyte replacement. CT scan of the chest showed no acute findings and a stable 5-mm right middle lobe nodule, likely benign, recommended 1 year followup. She was placed in isolation. She had previously failed outpatient treatment with Flagyl for her C. diff. Her laboratory data was monitored closely throughout her stay. Her electrolytes were replaced as needed. She was started on Remeron for her protein-calorie malnutrition. Supplements were given. It was felt as though the patient needed placement; therefore, referral was made to [facility] for assistance with financials. Care Management followed along throughout her stay. GI did see the patient and they recommended increasing her vancomycin to 250 mg every 6 hours as well as adding cholestyramine; however, the patient refused the cholestyramine. They did recommend colonoscopy if she failed to improve. Stools were sent for infectious workup, which were negative. Blood pressures remained stable. She was actually taken off of blood pressure medications as well as her beta nini as blood pressure was stable. Gradually, her C. diff and stools did improve. She was started on Marinol for appetite stimulation. This was subsequently discontinued. She did get to the point where her stools had improved; however, then did worsen again. C. diff was again positive. It was felt though that this could be related to just chronic diarrhea and not necessarily an infectious process due to the chronicity of her diarrhea. She had also started radiation, which also could contribute. GI did agree to go PATIENT'S NAME: DELON SALAS [facility] AGE: 67 Y [address] ROOM: [place] [address] LOCATION: [facility] [place] ADMIT DATE: 03/24/2017 Discharge Summary DISCHARGE DATE: 05/24/2017 FAMILY PHYSICIAN: Epifanio Wheeler MD ATTENDING PHYSICIAN: Bhavana Andrade with scoping the patient after she had underwent another round of p.o. vancomycin. Colonoscopy done on 05/11/2017 showed no evidence of C. diff colitis endoscopically. The patient continued to get radiation therapy daily. Eventually, Imodium was started. The patient was unable to be discharged due to no secondary payer source. Family and the patient had felt that she would benefit from a higher level of care. Gradually as the 2 months of hospitalization went on, she did improve with physical therapy and occupational therapy. It was recommended that she proceed to [facility] Healthcare to follow; however, the patient was refusing to be discharged to the assisted living due to the cost. She was insistent on going home. Her stools did improve to having 1 and 2 stools per day. Radiation was subsequently finished. The patient continued to have protein-calorie malnutrition. On 05/24/2017, the patient's vital signs were stable. She had had 1 to 2 stools. She had finished with radiation therapy. She had refused custodial facility and assisted living facility. This was discussed by Care Management with her family. The patient insisted on returning to her own home. We will have Home Healthcare follow the patient as well as PT and OT while in the home. She should follow up with Dr. Patrick in 2 weeks and follow up with Dr. Lorne Wheeler in 3 to 5 days with a CBC and a BMP at that time. Follow up with Dr. Spicer on 06/23/2017 at 10 o'clock. It is recommended that the patient not drive until cleared by physician. LABORATORY DATA: Most recently, sodium 141, potassium 4.1, chloride 105, glucose 87, BUN 10, creatinine 0.9, alk phos 73, AST 19, ALT 21, phosphorus 3.5, GFR on admit 78, it did drop as low as 48, prior to discharge 68, mag 1.9. WBC 2.1, hemoglobin 9.4, hematocrit 30.4, and platelets 165. Stool O and P negative, positive for C. diff, rare wbcs in the stool. RADIOLOGY REPORTS: CT of the thorax, please refer to hospital course. DISCHARGE INSTRUCTIONS: The patient will be discharged to home. Diet as tolerated. Activity as tolerated with a walker. No driving until cleared by primary care provider. Follow up with Dr. Patrick in 1 week, follow up with Dr. Spicer 06/23/2017 at 10 a.m., follow up with Dr. Wheeler in 3 to 5 days with labs at that time, the patient needs to shower every other day and up for meals to chair, CBC and BMP at appointment with Dr. Wheeler, [facility] to follow, PT, OT, and custodial care. The patient refused custodial facility and [facility]. I did call and discuss the case with the patient's primary care provider, Dr. Wheeler, on the day of discharge. Discharge Meds: See MAR. LIZZETH LINDO APRN FOR MERLYN HAGAN MD PATIENT'S NAME: DELON SALAS [facility] AGE: 67 Y [address] ROOM: [place] [address] LOCATION: [facility] [place] ADMIT DATE: 03/24/2017 Discharge Summary DISCHARGE DATE: 05/24/2017 FAMILY PHYSICIAN: Epifanio Wheeler MD ATTENDING PHYSICIAN: Bhavana Andrade KRR/aakash /[id number] CC: MD Epifanio Lim MD Fishel Z Liberman, MD, PhD d: 05/25/17 0548 t: 05/26/17 1602, DISCHARGE SUMMARY
--- NOTE | ~2017-03-24 | CON ---
PATIENT'S NAME: RENETTA SALASARA [facility] AGE: 67 Y [address] ROOM: [place] [address] LOCATION: [facility] [place] ADMIT DATE: 03/24/2017 Consultation DISCHARGE DATE: FAMILY PHYSICIAN: QUIQUE ORTIZ MD ATTENDING PHYSICIAN: Bhavana VELAZQUEZ DATE OF CONSULTATION: 05/03/2017 REFERRING PHYSICIAN: Zbigniew Estes MD REASON FOR CONSULTATION: C. diff colitis. HISTORY OF PRESENT ILLNESS: Ms. Salas is a 67-year-old female who has a history of endometrial cancer stage III. She has had a MAGED/BSO. She had been on chemotherapy and is now on radiation therapy. She apparently had C. diff few months ago and she was admitted with more diarrhea. She had been treated with Flagyl, had no improvement; was started on Flagyl again, had no improvement; and then ended up being admitted. She has had diarrhea since November or December, maybe a little more in the last 5 weeks. She finished her chemo and has been on radiation. She is about on cycle 5 or 6, she estimates of total of 9. She continues to have diarrhea. Over this course of treatment, she has had no fever. Her white count has been normal. She had a positive C. diff toxin here and has been on fidaxomicin now for 10 days, which has had absolutely no impact on her diarrhea as well. Because of her ongoing diarrhea and positive C. diff assay, ID was asked to see her. PAST MEDICAL HISTORY: Significant for the endometrial cancer. She also has hypertension, diastolic heart failure, and a pulmonary nodule. She has had sinus surgery in addition to her MAGED/BSO. SOCIAL HISTORY: She lives alone. She is on disability. Does not smoke, drink, or use illicit drugs. FAMILY HISTORY: Significant for stroke in her parents. ALLERGIES: LISTED TO SULFA AND QUINOLONES. MEDICATIONS: She is on the fidaxomicin. Other medications are reviewed. Of note, she denies any recent other antibiotics. In review of the chart, indicate she was PATIENT'S NAME: RENETTA SALASARA [facility] AGE: 67 Y [address] ROOM: [place] [address] LOCATION: [facility] [place] ADMIT DATE: 03/24/2017 Consultation DISCHARGE DATE: FAMILY PHYSICIAN: QUIQUE ORTIZ MD ATTENDING PHYSICIAN: Bhavana VELAZQUEZ on some amoxicillin in December and that appears to be all that is in the records here. REVIEW OF SYSTEMS: All remaining review of systems otherwise negative with pertinent positives and negatives in the HPI. PHYSICAL EXAMINATION: GENERAL: She is not in any acute distress. She is asleep, but easily arouses. She is alert and oriented. She has alopecia. VITAL SIGNS: Her T-max is 98.5, blood pressure is 115/65, pulse 82, and respirations 16. HEENT: NC/AT. EOMI. PERRLA. NECK: Supple. LUNGS: Clear. HEART: Regular. ABDOMEN: Soft and nontender. EXTREMITIES: Without cyanosis, clubbing, or edema. LABORATORY DATA: She did have a positive C. diff toxin. Her white count is 3.1, hemoglobin 10.1, and platelet count 167. Creatinine 1.1. ASSESSMENT AND PLAN: Clostridium difficile colitis? The patient may have Clostridium difficile colitis or she may not. She has had no response to appropriate therapy, has had diarrhea for months, which would be inconsistent with Clostridium difficile. I wonder if some of this is related to just chemo and now radiation enteritis. She has had no fever and no leukocytosis. Need to remember that the PCR test for the DNA that codes for Clostridium difficile and not for the toxin itself. Toxin assays are not use very often as they are notoriously insensitive, but there is question whether PCR can pickling solution maker test in people who did not really have Clostridium difficile as the culprit, I do not know if that is what is going on here or not. It is extremely difficult to know what she has going on, but her lack of response and lack of systemic symptoms to go with the lack of response do not suggest an infectious process in my mind along with the chronicity of her diarrhea. I think if her diarrhea continues, I would probably scope her and see if she has typical pseudomembranes or if she has something, that could be otherwise treated aggressively by GI for something such as radiation enteritis, etc. I would not pursue further Clostridium difficile treatment for now and follow her clinically and if she worsens, then may need to consider therapy; however, again she does not appear to have responded to Clostridium difficile treatment at all, thus continuing therapy does not seem beneficial. As for now, I would leave her in isolation unless she changes room and gets complete cleaning of PATIENT'S NAME: DELON SALAS [facility] AGE: 67 Y [address] ROOM: [address] [place] [address] LOCATION: [facility] [place] ADMIT DATE: 03/24/2017 Consultation DISCHARGE DATE: FAMILY PHYSICIAN: QUIQUE ORTIZ MD ATTENDING PHYSICIAN: Bhavana VELAZQUEZ her room. However, given her ongoing diarrhea, I think it is reasonable to keep her in isolation while she is here. Please call with questions. MD JESUS MORROW/aakash /[id number] d: 05/04/17 0025 t: 05/04/17 1047, CONSULTATION REPORT
--- NOTE | ~2017-03-24 | PN ---
PATIENT'S NAME: GERRI SALAS [facility] AGE: 67 Y [address] ROOM: [facility] [place] [place], [place] [address] LOCATION: [facility] [place] DATE: 03/24/2017 Progress Notes DISCHARGE DATE: FAMILY PHYSICIAN: QUIQUE ORTIZ MD ATTENDING PHYSICIAN: Bhavana VELAZQUEZ DATE OF SERVICE: 03/25/2017 CLINICAL UPDATE: Gerri Salas is a patient of mine in the outpatient arena. She has been diagnosed recently with cancer of the uterus and was admitted to the hospital on the date shown. I am not involved in the delivery of care here in the hospital but rather she is being seen by the [facility] hospitalist and her specialist from Hematology and Oncology, Dr. Yandel Estes. I stopped by this morning to make a social visit. She understands the care she has received now is in fact from Dr. Estes's office and the hospitalist. QUIQUE ORTIZ MD MAORI PHYSIOTHERAPIST/modl /[id number] d: t: 03/27/17 1143, PROGRESS NOTES
[~2017-03-24 12:30] MED LIST: CELEXA20 MG PO; EYE VITAMIN-MI1 EACH PO; GABAPENTIN300 MG PO; IBUPROFEN800 MG PO; K-TAB 10MEQ10 MEQ PO; LASIX20 MG PO; NEURONTIN300 MG PO; NORCO 5-325 TA1 EACH PO; OSENI 25-30 MG1 EACH PO; PRAVACHOL40 MG PO; SYSTANE ULTRA 010 ML OPHTH; TEARS AGAIN EYE5 GM; TENORMIN50 MG PO; TOPROL XL 5050 MG PO; TRAZODONE HCL100 MG PO; VITAMIN D-32000 UNI1 PO; ZESTRIL2.5 MG PO
--- NOTE | 2017-03-24 16:00 | NUR ---
67 Y/O FEMALE ADMITTED FROM [facility] & DROVE HERSELF HERE. PT ADMITTEED FOR NEURTOPENIA, WEAKNESS, FAILURE TO THRIVE. PT IS A&OX3, COOPERATIVE & PLEASANT. PT STATES THAT SHE WAS AT [facility] YESTERDAY & TODAY FOR IV FLUIDS, STATES THAT SHE HAS ALSO HAD CHRONIC DIARRHEA EVER SINCE SHE HAS BEGUN CHEMO & APPARENTLY IS POSITIVE FOR C-DIFF WELL. PT JUST FINISHED FLAGYL A FEW DAYS AGO. PT ALSO STATES THAT SHE VOMITED TODAY & HAS NOT EATEN SINCE YESTERDAY & HAS LOST ABOUT 10 LBS IN THE PAST MONTH. ALLERGIES: SULFA & QUINOLONES MEDICAL & SURGICAL HISTORY - ENDOMETRIAL CA WITH A HYSTER IN [place] OCT 2016, HAS HAD CHEMO FROM NOVEMBER THROUGH FEBRUARY 2017. STILL NEEDS TO HAVE RADIATION. HX C DIFF RECENTLY, RAYNAUDS, HIGH CHOLESTEROL, HTN, COLITIS, CHRONIC DIARRHEA SINCE FEBRUARY 2017, ARTHRITIS, DEGENERATIVE DISC DISEASE, LONG HISTORY OF DEPRESSION & PT STATES SHE HAS BEEN ON DISABILITY FOR THIS. NON & NEVER SMOKER, NON DRINKER, INCONTINENCE, NOCTURIA, DMII - WAS ON ORAL MEDS BUT HAS NOT BEEN ON MEDS SINCE EARLIER THIS YEAR. PT STATES THAT SHE FALLS AT HOME ATLEAST ONCE A WEEK & THIS HAS OCCURED FOR OVER A YEAR NOW, THIS IS WHY SHE HAS NOT SHOWERED OR BATHED WELL IN OVER A YEAR BECAUSE OF HER CONCERN OF FALLING IN THE SHOWER OR BATH. PT IS NOT , HAS NO CHILDREN, HAS ONE BROTHER THAT LIVES IN [place] AND HAS NO HELP AT HOME. SURGICAL HISTORY - HYSTERECTOMY 2016 FOR ENDOMETRIAL CANCER, HX FX VERTEBRAE WITH HALO 20 YRS AGO. SINUS SURGERY X2. REPORT GIVEN TO CHARLIE ZHANG PRIMARY CARE NURSE.
--- NOTE | 2017-03-24 18:20 | NUR ---
Significant event: Patient is alert and oriented. Is forgetfull/stubborn about calling for help. Bed alarm on at all times. Pneumatics off for now, per pt request, explained that they will be put on later before bedtime. Pt stated to admission nurse that she had not showered for 1 yr. Shower was given to patient. Has a port to right chest that was accessed at Dr Patrick office. Is occasionally incontinent, wears pull up brief. Does have a lump to mid upper back and head. Has Raynaud's, wears gloves to help keep hands warm. Vss on room air. Is on regular diet. Needs reinforcement to use call light for assistance. Cooperative with cares.
[2017-03-25 01:33] LABS: ALBUMIN 2.5 gm/dL (3.5-5.0); CALCIUM 7.8 mg/dL (8.5-10.5); CREATININE 0.8 mg/dL (0.5-1.1); TOTAL BILIRUBIN 0.3 mg/dL (0.0-1.5); TOTAL PROTEIN 5.4 g/dL (6.0-8.4)
--- NOTE | 2017-03-25 05:24 | NUR ---
Significant Event: PATIENT IS ALERT AND ORIENTED. AMBULATES WITH ONE ASSIST GB. IS INCONTINENT OF URINE AND BOWEL ALSO USES BATHROOM. VSS WNL ON RA. PORT TO RIGHT CHEST WITH FLUIDS RUNNING. HAD POTASSIUM ORAL AND IV AND MAG IV SEE EMAR. NEEDS TO HAVE CBC, CMS AND MAG LABS DRAWN AFTER POTASSIUM IS DONE RUNNING. HAS RAYNAUD'S DISEASE. IS ON ISO FOR C-DIFF CONTINUES TO HAVE LOOSE STOOL X4 THIS SHIFT. TELE NO CALLS Follow up:
[2017-03-25 10:45] LABS: HEMATOCRIT 23.7 % (33.0-46.0); MCHC 31.2 gm/dL (32.0-36.5); MCV 91.5 fl (83.0-98.0); MPV 11.5 fl (9.4-12.4); PLATELET COUNT 94 K/uL (150-450); RDW-CV 16.3 % (11.9-14.6); WBC 4.5 K/uL (4.0-11.0)
[2017-03-25 10:54] LABS: HEMOGLOBIN 7.4 g/dL (10.0-15.0); MCH 28.6 pg (27.0-34.0); RBC 2.59 M/uL (3.50-5.50)
[2017-03-25 10:57] LABS: ALBUMIN 2.5 gm/dL (3.5-5.0); CALCIUM 7.7 mg/dL (8.5-10.5); CREATININE 0.9 mg/dL (0.5-1.1); MAGNESIUM 2.3 mg/dL (1.8-2.6); TOTAL PROTEIN 5.4 g/dL (6.0-8.4)
[2017-03-25 10:58] LABS: ANION GAP 10.3 (10.0-19.0); POTASSIUM 4.3 mMol/L (3.7-5.1); TOTAL BILIRUBIN 0.2 mg/dL (0.0-1.5)
[2017-03-25 11:17] LABS: ABSOLUTE NEUTROPHIL CT (ANC) 2.9 K/uL (1.8-7.8); BANDED NEUTROPHIL # 0.8 K/uL (0.0-0.1); BANDED NEUTROPHILS % 17 %; LYMPHOCYTE # 1.2 K/uL (0.8-4.0); LYMPHOCYTE % 27 %; MONOCYTE # 0.4 K/uL (0.0-1.0); SEGMENTED NEUTROPHIL # 2.1 K/uL (1.8-7.8); SEGMENTED NEUTROPHIL % 47 %
--- NOTE | 2017-03-25 17:32 | NUR ---
AAOx3. Cooperative with cares. Up w/SBA. Contact isolation for cdiff. Neutropenic precautions d/c'd. Port to R)chest with new dressing put on w/chlorhexadine pad. Liquid BMs every few hours. Tolerating regular diet well. No PRN meds given. VSS, afebrile, on RA. Denies pain.
--- NOTE | 2017-03-26 04:51 | NUR ---
Pt. alert and oriented. VSS. RA. R) chest port with fluids. 1 assist with GB. Incontinent at times with urine and stool. Oral Vanco. Gloves on for Raynauds. ISO for c-diff precautions. Cooperative with cares.
[2017-03-26 06:14] LABS: ALBUMIN 2.4 gm/dL (3.5-5.0); CREATININE 0.8 mg/dL (0.5-1.1); TOTAL BILIRUBIN 0.2 mg/dL (0.0-1.5); TOTAL PROTEIN 5.3 g/dL (6.0-8.4)
[2017-03-26 06:15] LABS: CALCIUM 7.3 mg/dL (8.5-10.5); MAGNESIUM 1.8 mg/dL (1.8-2.6)
[2017-03-26 06:18] LABS: HEMATOCRIT 23.1 % (33.0-46.0); MCH 28.7 pg (27.0-34.0); MCHC 30.7 gm/dL (32.0-36.5); MCV 93.5 fl (83.0-98.0); MPV 11.8 fl (9.4-12.4); PLATELET COUNT 92 K/uL (150-450); RBC 2.47 M/uL (3.50-5.50); RDW-CV 16.4 % (11.9-14.6); WBC 5.1 K/uL (4.0-11.0)
[2017-03-26 06:24] LABS: HEMOGLOBIN 7.1 g/dL (10.0-15.0)
[2017-03-26 06:57] LABS: ABSOLUTE NEUTROPHIL CT (ANC) 2.9 K/uL (1.8-7.8); BANDED NEUTROPHIL # 0.7 K/uL (0.0-0.1); BANDED NEUTROPHILS % 13 %; LYMPHOCYTE # 1.9 K/uL (0.8-4.0); LYMPHOCYTE % 37 %; MONOCYTE # 0.3 K/uL (0.0-1.0); SEGMENTED NEUTROPHIL # 2.2 K/uL (1.8-7.8); SEGMENTED NEUTROPHIL % 44 %
--- NOTE | 2017-03-26 15:35 | NUR ---
AAOx3. Cooperative with cares. Continued contact isolation for cdiff. On Oral Vancomycin. IVF to tko to R)chest port w/GBR. Tolerating regular diet well. Gloves on at all times for N/T from Reynaud's Syndrome. Washed gloves today and showered patient. Brief on, incontinent of BM at times as it is liquid and gassy w/small amount of output.
--- NOTE | 2017-03-27 04:16 | NUR ---
Pt. alert and oriented. RA. VSS. 1 assist. Continue isolation with c-diff. R) chest port with fluids at TKO. Oral vanco. Shower yesterday. Gloves on for Raynauds. Incontinent of stool. Refused supper. Cooperative with cares
[2017-03-27 05:32] LABS: ALBUMIN 2.4 gm/dL (3.5-5.0); ANION GAP 13.5 (10.0-19.0); CALCIUM 7.7 mg/dL (8.5-10.5); CREATININE 0.8 mg/dL (0.5-1.1); MAGNESIUM 1.3 mg/dL (1.8-2.6); POTASSIUM 3.5 mMol/L (3.7-5.1); TOTAL BILIRUBIN 0.2 mg/dL (0.0-1.5); TOTAL PROTEIN 5.4 g/dL (6.0-8.4)
[2017-03-27 06:15] LABS: HEMATOCRIT 23.2 % (33.0-46.0); MCH 29.4 pg (27.0-34.0); MCHC 31.9 gm/dL (32.0-36.5); MCV 92.1 fl (83.0-98.0); MPV 11.7 fl (9.4-12.4); PLATELET COUNT 90 K/uL (150-450); RBC 2.52 M/uL (3.50-5.50); RDW-CV 15.9 % (11.9-14.6); WBC 6.7 K/uL (4.0-11.0)
[2017-03-27 06:17] LABS: HEMOGLOBIN 7.4 g/dL (10.0-15.0)
[2017-03-27 07:00] LABS: ABSOLUTE NEUTROPHIL CT (ANC) 4.6 K/uL (1.8-7.8); BANDED NEUTROPHILS % 15 %; LYMPHOCYTE # 1.3 K/uL (0.8-4.0); LYMPHOCYTE % 19 %; MONOCYTE # 0.8 K/uL (0.0-1.0); SEGMENTED NEUTROPHIL # 3.6 K/uL (1.8-7.8); SEGMENTED NEUTROPHIL % 53 %
--- NOTE | 2017-03-27 15:04 | NUR ---
Significant Event: Pt denies pain. Port to right chest d/i. hgb 7.4, K+ 3.5, and MG 1.3. Received 2 gm Mag IV as well as 40meq IV K+. Tele called at 0735 for brief tachycardia in 120's, pt was up to the br at that time, asymptomatic. Up with 1 assist. Has had several loose stools this shift. In contact isolation for cdiff. Follow up:
--- NOTE | 2017-03-27 15:58 | NUR ---
ATTEMPTED TO SPEAK TO PATIENT REGARDING CM AND OUR ROLE. PATIENT IS SLEEPING AT THIS TIME. WILL TRY TO SEE PATIENT AT ANOTHER TIME.
--- NOTE | 2017-03-28 03:58 | NUR ---
Significant Event: Patient is alert and oriented x 3. VSS on room air. On telemetry, no calls. Up with 1 assist and gaitbelt. BM x 4 this shift. Denies any pain. Right chest port with D5 1/2 NS with 20 meq of KCL running at 75 ml/hr. Receiving oral Vancomycin. In contact isolation for c.diff. Patient is pleasant and cooperative with cares. Follow up:
[2017-03-28 08:37] LABS: ALBUMIN 2.3 gm/dL (3.5-5.0); ANION GAP 11.5 (10.0-19.0); CALCIUM 7.9 mg/dL (8.5-10.5); CREATININE 0.8 mg/dL (0.5-1.1); MAGNESIUM 1.8 mg/dL (1.8-2.6); POTASSIUM 3.5 mMol/L (3.7-5.1); TOTAL PROTEIN 5.7 g/dL (6.0-8.4)
[2017-03-28 08:38] LABS: TOTAL BILIRUBIN 0.3 mg/dL (0.0-1.5)
[2017-03-28 08:40] LABS: HEMATOCRIT 24.4 % (33.0-46.0); MCV 90.7 fl (83.0-98.0); MPV 11.5 fl (9.4-12.4); PLATELET COUNT 72 K/uL (150-450); RBC 2.69 M/uL (3.50-5.50); RDW-CV 15.9 % (11.9-14.6); WBC 6.3 K/uL (4.0-11.0)
[2017-03-28 08:46] LABS: HEMOGLOBIN 7.8 g/dL (10.0-15.0)
--- NOTE | 2017-03-28 09:05 | NUR ---
Pt. educated on importance of pneumatics to prevent blood clots. Patient reports she is walking frequently to bathroom and will pump calves on own. Refusing pneumatics at this time.
[2017-03-28 09:17] LABS: ABSOLUTE NEUTROPHIL CT (ANC) 4.1 K/uL (1.8-7.8); BANDED NEUTROPHIL # 1.1 K/uL (0.0-0.1); BANDED NEUTROPHILS % 18 %; LYMPHOCYTE # 1.4 K/uL (0.8-4.0); LYMPHOCYTE % 22 %; MONOCYTE # 0.8 K/uL (0.0-1.0); SEGMENTED NEUTROPHIL % 47 %
--- NOTE | 2017-03-28 11:47 | NUR ---
A-NUTRITION F/U STAGE 3 ENDOMETRIAL CA; RECENTLY UNDERGOING CHEMO. (+)C-DIFF LABS: NA 140, K+ 3.5, GLU 109, BUN 5, LARRY OPERATOR 0.8, ALB 2.3 MEDS: FLORASTOR, MAG. SULFATE, IV FLUIDS DIET RX: REGULAR W/AGATHA. ENSURE ENLIVE QD AT DINNER. PO INTAKE HAS BEEN POOR; REFUSALS-BITES SINCE INITIAL ASSESSMENT ON 03/25. PT ONLY WANTS AGATHA. ENSURE QD EST NUTR NEEDS: 5475-1151 KCALS AND 77-102 GM PROTEIN D-AT NUTRITION RISK W/INADEQUATE ORAL INTAKE R/T ALTERED APPETITE SECONDARY TO CHEMO AEB MOD. PROTEIN/KCAL MALNUTRITION, PT REPORT, 20% LOSS X 4 MOS, INTAKE RECORDS. I-1)CONTINUE W/AGATHA. ENSURE QD, PER PT 2)PT IS UNABLE TO MEET NUTR. NEEDS W/ORAL INTAKE. PT WOULD BENEFIT FROM ENTERAL NUTRITION; IF DESIRED, PLEASE CONSULT. M/E-GOAL: PO INTAKE >/=505 PRIOR TO DISCHARGE 1)F/U PO INTAKE, GI, AND POC IN 3-5 DAYS 2)ASSIST NEEDED
--- NOTE | 2017-03-28 12:40 | NUR ---
SPOKE TO PATIENT REGARDING CM AND OUR ROLE. PATIENT LIVES ALONE IN OWN HOME, SHE TELLS ME THAT SHE HAS SPOKEN TO HER BROTHER AND SHE FEELS THAT SHE NEEDS TO GO TO A SNF. SHE IS OPENED TO GOING "TO ANY PLACE THAT HAS AN OPENING." PATIENT DOES NOT HAVE A SECONDARY PAYOR SOURCE AND SHE WILL NEED TO HAVE ONE BEFORE ANY SNF WILL ACCEPT HER. I HAD RECEIVED CALL THIS AM FROM Mina GONGORA WITH [employer] AND SHE HAD RECEIVED REFERRAL TO MEET WITH PATIENT AND OUTPT TO SEE ABOUT GETTING HER ON MEDICAID. WHEN I NOTIFIED TIN WITH [employer] AND UPDATED HER THAT PATIENT PATIENT NEEDS TO GET ON MEDICAID SHE INFORMS ME THAT SINCE PATIENT IS IN THE HOSPITAL THAT SHE DOES NOT HELP PATIENT THAT I NEED TO DO THIS. I MADE REFERRAL TO JOSE WITH [employer]. SHE WILL MEET WITH PATIENT AND TRY TO ARRANGE MEDICAID. HAD RECEIVED PAPERS FROM THE [facility] FOR PATIENT TO SIGN THAT NEEDED TO BE FAXED TO CLEMENTE AT [facility]. PATENT COMPLETED THE PAPER WORK AND I FAXED IT TO SHERRY AT [facility].
--- NOTE | 2017-03-28 15:43 | NUR ---
Significant Event: Pt denies pain. Right chest port d/i with IVF running. Has had several loose stools this shift, inc at times. Up with 1 assist. Continues to be in contact isolation for cdiff. Talked with cancer center nurse, they can not start radiation with hgyarely jay MD aware and states hgb coming up on its own so will continue to monitor for now. Follow up:
[2017-03-29 04:44] LABS: ALBUMIN 2.2 gm/dL (3.5-5.0); ANION GAP 9.7 (10.0-19.0); CALCIUM 8.2 mg/dL (8.5-10.5); CREATININE 0.8 mg/dL (0.5-1.1); MAGNESIUM 1.7 mg/dL (1.8-2.6); POTASSIUM 3.7 mMol/L (3.7-5.1); TOTAL BILIRUBIN 0.3 mg/dL (0.0-1.5); TOTAL PROTEIN 5.8 g/dL (6.0-8.4)
[2017-03-29 04:47] LABS: BASOPHIL % 0.2 %; EOSINOPHIL % 0.2 %; HEMATOCRIT 24.4 % (33.0-46.0); IMMATURE GRANULOCYTE # 0.1 K/uL (0.0-0.3); LYMPHOCYTE # 1.5 K/uL (0.8-4.0); LYMPHOCYTE % 22.8 %; MCV 90.7 fl (83.0-98.0); MONOCYTE # 0.9 K/uL (0.0-1.0); MONOCYTE % 13.8 %; NEUTROPHIL # (ANC) 3.9 K/uL (1.8-7.8); NRBC % 0 /100WBC (0-0.00); PLATELET COUNT 74 K/uL (150-450); RBC 2.69 M/uL (3.50-5.50); RDW-CV 15.9 % (11.9-14.6); WBC 6.4 K/uL (4.0-11.0)
[2017-03-29 04:49] LABS: HEMOGLOBIN 7.8 g/dL (10.0-15.0)
--- NOTE | 2017-03-29 05:21 | NUR ---
SSignificant Event: PATIENT IS ALERT AND ORIENTED THROUGHOUT SHIFT. PLEASANT VSS. ON ROOM AIR. HAS RAUNAUDS, WEARS GLOVES. USES CALL LIGHT APPROPRIATELY. UPX1 INCONTINENT AT TIMES. RIGHT CHEST PAC. BLOOD RETURN NOTED. LABS DRAWN. PATIENT EXPERIENCED SOME EMEIS EARLY ON IN SHIFT. AND FELT NAUSEATED ONCE AGAIN THIS MORNING. ZOFRAN ADMINISTERED LAST AT 0417. ON ROOM AIR. Follow up:
--- NOTE | 2017-03-29 17:30 | NUR ---
PER MD ORDER: CHOCOLATE ENSURES ADDED FROM QD TO TID. APPLESAUCE AND BANANA TID W/MEALS. BROWN RICE AT L/D.
--- NOTE | 2017-03-29 17:38 | NUR ---
Significant event: Patient is alert and oriented. VSS on room air. Port to right chest with fluids running. Had 6 liquidy stools today. Orders for a stool sample, see chart. Hats are in place. Is on strict I&O including bm's. No reports of nausea this shift. Encouraged patient to use brat diet per Dr Raines. Has Raynauds, wears gloves to help with cold. Continues in isolation. Cooperative with cares.
--- NOTE | 2017-03-30 04:09 | NUR ---
SIGNIFICANT EVENT: VSS. A/OX3. UP WITH 1 ASSIST. SEVERAL RUNNY STOOLS THROUGH THE NIGHT. STOOL CULTURE PENDING. ISOLATION FOR C-DIFF. VANCO PO. PORT TO R) CHEST.
[2017-03-30 05:57] LABS: ALBUMIN 2.4 gm/dL (3.5-5.0); ANION GAP 12.4 (10.0-19.0); CALCIUM 8.2 mg/dL (8.5-10.5); CREATININE 0.9 mg/dL (0.5-1.1); MAGNESIUM 2.1 mg/dL (1.8-2.6); POTASSIUM 4.4 mMol/L (3.7-5.1); TOTAL PROTEIN 6.1 g/dL (6.0-8.4)
[2017-03-30 05:59] LABS: TOTAL BILIRUBIN 0.2 mg/dL (0.0-1.5)
[2017-03-30 06:05] LABS: BASOPHIL % 0.3 %; EOSINOPHIL % 0.4 %; HEMATOCRIT 25.4 % (33.0-46.0); IMMATURE GRANULOCYTE # 0.1 K/uL (0.0-0.3); IMMATURE GRANULOCYTE % 1.8 %; LYMPHOCYTE # 1.7 K/uL (0.8-4.0); LYMPHOCYTE % 21.6 %; MCH 28.9 pg (27.0-34.0); MCHC 31.5 gm/dL (32.0-36.5); MCV 91.7 fl (83.0-98.0); MONOCYTE # 0.8 K/uL (0.0-1.0); MPV 11.7 fl (9.4-12.4); NEUTROPHIL # (ANC) 5.2 K/uL (1.8-7.8); NEUTROPHIL % 65.9 %; NRBC % 0 /100WBC (0-0.00); RBC 2.77 M/uL (3.50-5.50); RDW-CV 15.9 % (11.9-14.6); WBC 7.8 K/uL (4.0-11.0)
[2017-03-30 06:06] LABS: PLATELET COUNT 95 K/uL (150-450)
--- NOTE | 2017-03-30 16:20 | NUR ---
Significant event: Patient is alert and oriented. VSS, on room air. Port to right chest with fluids running. Test for C-diff completed today. NO results yet. Remains in isolation. Need to encourage patient to eat. Has no appetite. Did ambulate in [place] with therapy. Is a one assist to bathroom. Strict I&O, including stool. Wears gloves due to raynaud's. Cooperative with cares.
--- NOTE | 2017-03-31 06:03 | NUR ---
Significant Event: AAOX3. REG DIET. PORT TO R)CHEST CURRENTLY ACCESSED WITH IVF INFUSING. PT HAD EMESIS AT START OF SHIFT WHICH CONTINUED THROUGHOUT THE NIGHT. ZOFRAN ADMINISTERED X1 AT 1912, WITHOUT RELIEF. NOTIFIED OF PT'S CONDITION; N/O PHENERGAN IM, ADMINISTERED X1 AT 2212. PT NO LONGER VOMITED, BUT REFUSED ALL EVENING PO MEDS DUE TO NAUSEA/EMESIS. 0500 VANCO RETAINED. Follow up:
[2017-03-31 08:08] LABS: BASOPHIL % 0.3 %; EOSINOPHIL % 0.1 %; HEMATOCRIT 24.8 % (33.0-46.0); IMMATURE GRANULOCYTE # 0.1 K/uL (0.0-0.3); IMMATURE GRANULOCYTE % 1.8 %; LYMPHOCYTE # 1.5 K/uL (0.8-4.0); MCH 29.4 pg (27.0-34.0); MCHC 31.9 gm/dL (32.0-36.5); MCV 92.2 fl (83.0-98.0); MONOCYTE # 0.7 K/uL (0.0-1.0); MONOCYTE % 8.8 %; MPV 10.7 fl (9.4-12.4); NEUTROPHIL # (ANC) 5.6 K/uL (1.8-7.8); NRBC % 0 /100WBC (0-0.00); PLATELET COUNT 93 K/uL (150-450); RBC 2.69 M/uL (3.50-5.50); RDW-CV 15.8 % (11.9-14.6)
[2017-03-31 08:15] LABS: HEMOGLOBIN 7.9 g/dL (10.0-15.0)
[2017-03-31 08:27] LABS: ALBUMIN 2.4 gm/dL (3.5-5.0); ANION GAP 12.4 (10.0-19.0); CALCIUM 8.4 mg/dL (8.5-10.5); CREATININE 0.9 mg/dL (0.5-1.1); MAGNESIUM 1.7 mg/dL (1.8-2.6); POTASSIUM 4.4 mMol/L (3.7-5.1); TOTAL BILIRUBIN 0.2 mg/dL (0.0-1.5); TOTAL PROTEIN 6.2 g/dL (6.0-8.4)
--- NOTE | 2017-03-31 14:45 | NUR ---
A - NUTRITION FOLLOW-UP. VISITED PT THIS AFTERNOON, WORKING WITH PT, NOT ABLE TO INTERVIEW LONG. PER SHIFT REPORT, C/O N/V. PER RECORD, ABOUT 8# WT LOSS IN 7 DAYS. LABS: BUN 3, ALB 2.4, MG 1.7, PRE-ALB 13 MEDS: REVIEWED. DIET: REGULAR W/ ENSURE ENLIVE TID; APPLESAUCE/BANANA TID; BROWN RICE L/D. REFUSED X3 MEALS. DID NOT TAKE MUCH LUNCH TODAY. C/O NO APPETITE. HAS BEEN DRINKING ONLY 1 BOTTLE OF ENSURE ENLIVE PER DAY SO FAR. EST NEEDS: 7744-9230 KCAL, 77-102 GRAMS PROTEIN, FLUID NEEDS: 1ML/KCAL D - INCREASED NUTRIENT NEEDS RELATED TO CATABOLIC DISEASE PROCESS EVIDENCED BY REFUSED X3 MEALS; 20% WEIGHT LOSS IN 4 MONTHS. I - 1) CONTINUE W/ CURRENT ORAL SUPPLEMENTS. 2) IF PT AGREES/ABLE TO START EN, RECOMMEND JEVITY 1.5 AT 55ML/HR WITH 40ML/HR WATER FLUSHES. START AT 15ML/HR, INCREASE 15ML/HR EVERY 4-8 HR TILL GOAL RATE. START SLOW TO PREVENT REFEEDING SYNDROME. M/E - GOAL: TO MEET >75% OF PATIENT'S NEEDS VIA MOST APPROPRIATE ROUTE IN 2-4 DAYS.
--- NOTE | 2017-03-31 16:44 | NUR ---
Significant event: Patient is alert and oriented. VSS on room air. Port to right chest. Dressing and needle changed today. Fluids running. refuses to eat anything, due to no appetite. Refused Questran today, will try it in applesauce instead of juice. Has had 7 liquid/watery stools today. All stools tests are negative. Will be moving to room 3209 and out of isolation. Ambulates with one assist, due to unsteadiness. No vomiting today, no complaints of nausea. Needs strict Intake and output, including stool amounts. Cooperative with cares.
--- NOTE | 2017-04-01 05:22 | NUR ---
Significant Event: AAOX3, CAN BE FORGETFUL. REGULAR DIET. PORT TO RIGHT CHEST ACCESSED WITH IVF INFUSING. 1PA WITH ACTIVITIES, REFUSES GB. STARTED SHIFT ON TELE DUE TO MAG DRIP, WAS D/C'D ONCE DRIP WAS COMPLETED. DOBHOFF WAS PLACED TO PT'S LEFT NARE ON PRIOR SHIFT, BUT WAS ACCIDENTALLY D/C'D BY PT. PT REFUSED REPLACEMENT. NO EMESIS DURING SHIFT. DENIED NAUSEA. TOOK ALL MEDS WITH THE EXCEPTION OF QUESTRAN, STATES SHE DOES NOT LIKE THE TASTE. NO BM COLLECTED FOR LAB. COOPERATIVE WITH CARES OTHERWISE. Follow up: STOOL COLLECTION.
[2017-04-01 07:42] LABS: ALBUMIN 2.4 gm/dL (3.5-5.0); ANION GAP 12.5 (10.0-19.0); CALCIUM 8.3 mg/dL (8.5-10.5); CREATININE 0.8 mg/dL (0.5-1.1); MAGNESIUM 2.4 mg/dL (1.8-2.6); PHOSPHORUS 3.8 mg/dL (2.5-4.9); POTASSIUM 4.5 mMol/L (3.7-5.1)
[2017-04-01 08:12] LABS: HEMATOCRIT 26.3 % (33.0-46.0); HEMOGLOBIN 8.2 g/dL (10.0-15.0)
--- NOTE | 2017-04-01 17:49 | NUR ---
Significant Event: Patient alert and oriented. Up to the bathroom with assist to void and patient has had scant, loose BM's with each void. Patient refuses the Questran and Dr Raines is aware. Patient refused breakfast and took bites of lunch. She did drink her Ensure with lunch and another this afternoon. New order to change diet to nonselect where she will automatically get a tray and she is to have 4 Ensures/day. Denies discomfort. Ambulated in the hallway with PT and up in the recliner this afternoon. Portacath to her R) chest that flushes well with good blood return. Hgb up to 8.2 and Mg at 2.4 this morning. Follow up:
--- NOTE | 2017-04-02 03:37 | NUR ---
Pt. alert and oriented. RA. VSS. R) chest port with GBR - saline locked. 1 assist with walker to BR. Needs encouragement to eat and drink. Nonselect trays are to be done now. Pt. refuses Questran. Needs ensures 4x a day. Zofran given around 2300. Emesis of 100ml. Cooperative with cares.
[2017-04-02 05:58] LABS: ALBUMIN 2.6 gm/dL (3.5-5.0); ANION GAP 12.7 (10.0-19.0); CALCIUM 8.7 mg/dL (8.5-10.5); CREATININE 0.9 mg/dL (0.5-1.1); PHOSPHORUS 4.4 mg/dL (2.5-4.9); POTASSIUM 4.7 mMol/L (3.7-5.1)
--- NOTE | 2017-04-02 18:57 | NUR ---
Significant Event: UP TO BR 4 TIMES WITH 1 ASSIST, TOLERATES ACTIVITY FAIR. IS SOMEWHAT UNSTEADY ON FEET, NEEDS ENC TO SLOW DOWN, HAS LOOSE STOOLS, NEEDS MUCH ENC TO EAT, WILL TAKE ENSURE...CARE MANAGEMENT TO SEE CONCERNING POSS NH PLACEMENT... Follow up:
--- NOTE | 2017-04-03 04:00 | NUR ---
Pt. alert and oriented. VSS. RA. R) chest port - saline locked with GBR. 1 assist with walker to BR. Nonselect tray for meals. Still refuses to eat. Needs lots of encouragement to eat. Refuses questran. Zofran given around 1930 for nausea - relief noted. Raynauds - wears gloves on hands at all times. PT/OT eval in AM. Placement could be difficult due to insurance. Cooperative and pleasant with cares.
[2017-04-03 06:09] LABS: ALBUMIN 2.5 gm/dL (3.5-5.0); ANION GAP 12.5 (10.0-19.0); CALCIUM 8.8 mg/dL (8.5-10.5); MAGNESIUM 1.7 mg/dL (1.8-2.6); PHOSPHORUS 4.2 mg/dL (2.5-4.9); POTASSIUM 4.5 mMol/L (3.7-5.1)
[2017-04-03 06:22] LABS: HEMATOCRIT 27.5 % (33.0-46.0); HEMOGLOBIN 8.6 g/dL (10.0-15.0); MCH 28.8 pg (27.0-34.0); MCHC 31.3 gm/dL (32.0-36.5); MPV 10.3 fl (9.4-12.4); PLATELET COUNT 237 K/uL (150-450); RBC 2.99 M/uL (3.50-5.50); RDW-CV 15.8 % (11.9-14.6); WBC 6.2 K/uL (4.0-11.0)
[2017-04-03 06:51] LABS: LYMPHOCYTE # 2.1 K/uL (0.8-4.0); LYMPHOCYTE % 34 %; MONOCYTE # 0.2 K/uL (0.0-1.0); SEGMENTED NEUTROPHIL # 3.6 K/uL (1.8-7.8); SEGMENTED NEUTROPHIL % 58 %
[2017-04-03 06:52] LABS: ABSOLUTE NEUTROPHIL CT (ANC) 3.8 K/uL (1.8-7.8); BANDED NEUTROPHIL # 0.2 K/uL (0.0-0.1); BANDED NEUTROPHILS % 3 %
--- NOTE | 2017-04-03 09:00 | NUR ---
SPOKE TO MOE WITH [employer] TO SEE WHERE THEY ARE AT IN GETTING PATIENT ON MEDICAID, I MADE REFERERAL TO HER ON 03/28/17. MOE INFORMS ME THAT SHE HAS NOT MADE ANY REFERRAL BUT IS GOING TO "TRY TO GET TO IT TODAY".
--- NOTE | 2017-04-03 15:55 | NUR ---
A - NUTRITION F/U. A/O X 3. ALB 2.5, OTHER LABS WNL. PT W/ 1+ FOOT/ANKLE EDEMA. CBW: 156# IS DOWN 11# SINCE ADMIT. DIET: REGULAR, INTAKE 0-25%. PT RECEIVES ENSURE QID. PT REPORTS NOT MUCH APPETITE BUT USUALLY TAKES 4 ENSURE DAILY (1400 KCALS, 80 GM PROTEIN, 720 ML FREE H20). EST NEEDS: 9702-9417 KCALS, 77-102 GM PROTEIN. D - AT RISK W/ INADEQUATE ORAL INTAKE R/T DECREASED APPETITE AEB INTAKE RECORD AND WT LOSS. I - GOAL: 25-50% MEAL INTAKE, CONTINUED ENSURE INTAKE. M/E - 1) ? IF PT NEEDS IVF. 2) WILL MONITOR INTAKE/WT...IF INTAKE DOES NOT IMPROVE AND WT CONTS TO DECLINE WILL REC EN. 3) F/U IN 1-2 DAYS.
--- NOTE | 2017-04-03 15:57 | NUR ---
A&O-1PA. NO C/O PAIN. LS CLEAR. N/T TO HANDS/FEET HX REYNAUDS. VD PER BR. BM X3 TODAY STOOL SAMPLE SENT. R) CX PORT. PO ATBX. DECREASED APPETITE.
--- NOTE | 2017-04-04 04:24 | NUR ---
Pt. alert and oriented. RA. VSS. R) chest port - saline locked. 1 assist with walker to BR. nonselect tray for meals. Refuses to eat as poor appetite. Ensures to be given 4x a day. Continues to refuse questran. NO PRN meds given this shift. Still up to the bathroom multiple times with stools off and on. Slept decent through night. Continues to be on oral vanco. Cooperative with cares.
[2017-04-04 06:12] LABS: ALBUMIN 2.8 gm/dL (3.5-5.0); ANION GAP 13.3 (10.0-19.0); CALCIUM 8.9 mg/dL (8.5-10.5); POTASSIUM 4.3 mMol/L (3.7-5.1); TOTAL PROTEIN 7.2 g/dL (6.0-8.4)
[2017-04-04 06:16] LABS: TOTAL BILIRUBIN 0.3 mg/dL (0.0-1.5)
[2017-04-04 06:20] LABS: BASOPHIL # 0.1 K/uL (0.0-0.2); EOSINOPHIL % 0.2 %; HEMATOCRIT 28.7 % (33.0-46.0); HEMOGLOBIN 8.8 g/dL (10.0-15.0); IMMATURE GRANULOCYTE # 0.2 K/uL (0.0-0.3); IMMATURE GRANULOCYTE % 2.7 %; LYMPHOCYTE % 31.8 %; MCH 28.3 pg (27.0-34.0); MCHC 30.7 gm/dL (32.0-36.5); MCV 92.3 fl (83.0-98.0); MONOCYTE # 0.7 K/uL (0.0-1.0); MONOCYTE % 11.9 %; MPV 9.8 fl (9.4-12.4); NEUTROPHIL # (ANC) 3.3 K/uL (1.8-7.8); NEUTROPHIL % 52.4 %; NRBC % 0 /100WBC (0-0.00); RBC 3.11 M/uL (3.50-5.50); WBC 6.2 K/uL (4.0-11.0)
[2017-04-04 06:21] LABS: PLATELET COUNT 322 K/uL (150-450)
--- NOTE | 2017-04-04 17:19 | NUR ---
Significant Event:PT UP TO CHAIR AND BR TODAY. DENIES PAIN. ALERT/ORIENTED. C-DIFF NEGATIVE. POOR APPETITE AND EATS ONLY ENSURE. HAS RIGHT CHEST PORT S/L'D. HAS HAD 4 LIQUID CHAPA STOOLS WITH EACH VOID. UP WITH STANDBY ASSIST/WALKER/GAIT BELT. Follow up:
--- NOTE | 2017-04-05 05:57 | NUR ---
Pt. alert and oriented. RA. VSS. 1 assist with walker. R) chest port - saline locked. Refuses to eat as poor appetite. Will drink ensures with much encouragment. Continues to refuse questran for diarrhea which she is still having. No PRN meds given this shift. Oral vanco still. Still loose stools. Slept off an on through night. Waiting on medicaid. Cooperative with cares.
[2017-04-05 06:05] LABS: BASOPHIL # 0.1 K/uL (0.0-0.2); BASOPHIL % 0.9 %; EOSINOPHIL % 0.1 %; HEMOGLOBIN 9.2 g/dL (10.0-15.0); IMMATURE GRANULOCYTE # 0.1 K/uL (0.0-0.3); IMMATURE GRANULOCYTE % 1.6 %; LYMPHOCYTE # 2.5 K/uL (0.8-4.0); LYMPHOCYTE % 35.5 %; MCHC 30.7 gm/dL (32.0-36.5); MCV 91.2 fl (83.0-98.0); MONOCYTE # 0.9 K/uL (0.0-1.0); MONOCYTE % 12.7 %; MPV 9.6 fl (9.4-12.4); NEUTROPHIL # (ANC) 3.4 K/uL (1.8-7.8); NEUTROPHIL % 49.2 %; NRBC % 0 /100WBC (0-0.00); PLATELET COUNT 402 K/uL (150-450); RBC 3.29 M/uL (3.50-5.50); RDW-CV 15.9 % (11.9-14.6)
[2017-04-05 06:07] LABS: ALBUMIN 2.8 gm/dL (3.5-5.0); ANION GAP 11.2 (10.0-19.0); CALCIUM 9.2 mg/dL (8.5-10.5); POTASSIUM 4.2 mMol/L (3.7-5.1); TOTAL BILIRUBIN 0.3 mg/dL (0.0-1.5); TOTAL PROTEIN 7.3 g/dL (6.0-8.4)
--- NOTE | 2017-04-05 11:10 | NUR ---
A - NUTRITION F/U. GLU 97, BUN/GARAGEMAN 15/1.0, ALB 2.8. CBW: 153# IS DOWN 14# SINCE ADMIT. LOOSE STOOLS CONT, PT REFUSES QUESTRAN. PT W/ 1+ BLE EDEMA. DIET: REGULAR W/ ENSURE QID. REFUSING MEALS. TAKES ENSURE W/ ENCOURAGEMENT; UNFORTUNATELY, ENSURE MAY BE CONTRIBUTING TO STOOLING D/T CONCENTRATION. REMERON INITIATED YESTERDAY. D - AT RISK W/ UNINTENDED WT LOSS R/T INADEQUATE ENERGY AND FLUID INTAKE AEB CBW DOWN 14# SINCE ADMISSION. I - GOAL: POSSIBLE ALTERNATE FEEDING ROUTE TO MEET PT NEEDS. M/E - 1) IF PT WOULD CONSENT, WOULD BENEFIT FROM FIBER-CONTAINING TF FOR NUTRITION AND TO BULK UP STOOLS. PLEASE CONSULT IF TF IS DESIRED. 2) CONSIDER IVF. WILL F/U IN 1-2 DAYS.
--- NOTE | 2017-04-05 15:43 | NUR ---
Significant event: Patient is alert and oriented. VSS, on room air. Port to right chest is saline locked. Wears gloves/socks to hands due to Raynaud's. Ambulates with 1-assist and walker. Refuses to eat, only takes a bite or two. Does drink her ensure. Has only had 3 liquid stools today, small amts. Does work with PT/OT. Sleeps most of day otherwise. Has had no vomiting or nausea today. Cooperative with cares.
--- NOTE | 2017-04-06 02:41 | NUR ---
Significant Event: PT AO. VSS ON RA, AFEBRILE. PORT R CHEST, GOOD BLOOD RETURN. AMBULATES WITH 1PA, GAITBELT AND WALKER. REFUSED EVENING MEAL. VERY FLAT AFFECT. HAD 2 SCANT BM THIS SHIFT. DENIES PAIN OR NAUSEA. WAITING ON MEDICAID APPROVAL FOR DISCHARGE PLANNING. Follow up: CONTINUE TO MONITOR. DAILY WT, STRICT I/O. ALARMS FOR SAFETY
[2017-04-06 04:50] LABS: ANION GAP 13.2 (10.0-19.0); POTASSIUM 4.2 mMol/L (3.7-5.1); TOTAL PROTEIN 7.6 g/dL (6.0-8.4)
[2017-04-06 04:51] LABS: TOTAL BILIRUBIN 0.2 mg/dL (0.0-1.5)
[2017-04-06 04:54] LABS: BASOPHIL # 0.1 K/uL (0.0-0.2); BASOPHIL % 0.7 %; HEMATOCRIT 31.3 % (33.0-46.0); HEMOGLOBIN 9.8 g/dL (10.0-15.0); IMMATURE GRANULOCYTE # 0.1 K/uL (0.0-0.3); IMMATURE GRANULOCYTE % 1.5 %; LYMPHOCYTE # 3.6 K/uL (0.8-4.0); LYMPHOCYTE % 41.8 %; MCH 28.9 pg (27.0-34.0); MCHC 31.3 gm/dL (32.0-36.5); MCV 92.3 fl (83.0-98.0); MONOCYTE # 0.9 K/uL (0.0-1.0); MONOCYTE % 10.4 %; MPV 9.7 fl (9.4-12.4); NEUTROPHIL # (ANC) 3.9 K/uL (1.8-7.8); NEUTROPHIL % 45.6 %; NRBC % 0 /100WBC (0-0.00); RBC 3.39 M/uL (3.50-5.50); RDW-CV 15.9 % (11.9-14.6); WBC 8.5 K/uL (4.0-11.0)
[2017-04-06 04:55] LABS: PLATELET COUNT 532 K/uL (150-450)
--- NOTE | 2017-04-06 11:30 | NUR ---
SPOKE TO MOE WITH [employer] TO SEE IF SHE HAS HEARD FROM [facility] REGARDING MEDICAID. SHE INFORMS ME THAT [facility] IS STILL WORKING ON THIS AND SHE HAS NOT HEARD FROM THEM. SHE REPORTS THAT THEY HAVE UP TO 45 DAYS BEFORE THEY HAVE TO REVIEW IT ONCE IT IS SUMMINTED.
--- NOTE | 2017-04-06 15:27 | NUR ---
Significant Event:Is A/O.Is withdrawn some & has flat affect.Cooperative.No c/o pain.No N/V.Not much appetite.Therapist did bring her some [employer] & she did eat some of her chicken.Rest of it is labeled & put in frig.Has been up with walker & 1.Voiding ok & had 2 small loose stools.Still waiting for medicaid to be ok'd.Wears gloves & socks on feet. Follow up:
--- NOTE | 2017-04-06 16:00 | NUR ---
RECEIVED CALL FROM ISREAL WITH [employer] ASKING FOR UPDATE ON DISCHARGE PLANS FOR [place]. I UPDATED HER THAT I HAVE MADE REFERRAL TO [facility] AND THEY ARE HAVE MADE REFERRAL TO [facility] FOR MEDICAID. ISREAL HAS ACESS TO [facility] GRAIN MANAGER THAT ARRANGES THE MEDICAID AND SHE SENT HER AN EMAIL REQUESTING THAT SHE GET R[place] ON MEDICAID SOON. ISREAL IS ALSO GOING TO CONTACT THEM VIA PHONE IN THE AM AND GET BACK TO ME TO WHAT INFO SHE FINDS OUT FROM THEM.
--- NOTE | 2017-04-07 03:48 | NUR ---
Significant Event: PT AO. VSS ON RA, AFEBRILE. PORT TO R CHEST, SALINE LOCK WITH GOOD BLOOD RETURN. PT HAS FLAT AFFECT. AMBULATES WITH SBA, GAITBELT AND WALKER. REFUSED EVENING MEAL. OFFERED LEFT OVER [employer] FROM [place], PT STATED SHE MIGHT EAT IT FOR BREAKFAST. DENIES PAIN/ DENIES NAUSEA. ONLY 1 SM BM THIS SHIFT. PT IS STRICT I/O, DAILY WT. AWAITING MEDICAID APPROVAL FOR PLACEMENT. BROTHER MICHAEL IS POA. Follow up: CONTINUE TO MONITOR
[2017-04-07 05:00] LABS: BASOPHIL # 0.1 K/uL (0.0-0.2); BASOPHIL % 0.7 %; HEMATOCRIT 30.5 % (33.0-46.0); HEMOGLOBIN 9.3 g/dL (10.0-15.0); IMMATURE GRANULOCYTE # 0.1 K/uL (0.0-0.3); IMMATURE GRANULOCYTE % 1.4 %; LYMPHOCYTE # 3.2 K/uL (0.8-4.0); LYMPHOCYTE % 43.8 %; MCH 28.1 pg (27.0-34.0); MCHC 30.5 gm/dL (32.0-36.5); MCV 92.1 fl (83.0-98.0); MONOCYTE # 0.7 K/uL (0.0-1.0); MONOCYTE % 9.7 %; MPV 9.3 fl (9.4-12.4); NEUTROPHIL # (ANC) 3.3 K/uL (1.8-7.8); NEUTROPHIL % 44.4 %; NRBC % 0 /100WBC (0-0.00); PLATELET COUNT 538 K/uL (150-450); RBC 3.31 M/uL (3.50-5.50); RDW-CV 16.1 % (11.9-14.6); WBC 7.4 K/uL (4.0-11.0)
[2017-04-07 05:12] LABS: ALBUMIN 2.9 gm/dL (3.5-5.0); ANION GAP 13.2 (10.0-19.0); CREATININE 1.1 mg/dL (0.5-1.1); POTASSIUM 4.2 mMol/L (3.7-5.1); TOTAL PROTEIN 7.5 g/dL (6.0-8.4)
[2017-04-07 05:13] LABS: TOTAL BILIRUBIN 0.4 mg/dL (0.0-1.5)
--- NOTE | 2017-04-07 10:00 | NUR ---
SPOKE TO PATIENT UPDATED HER THAT WE ARE STILL WAITING TO HERE FROM [facility] ABOUT HER MEDICAID. PATIENT TELLS ME THAT SHE KNOWS SHE NEEDS TO GO TO SNF. I TOLD HER THAT I SPOKE TO RACHEL FROM [facility] AND THAT SHE IS GOING TO TRY TO EXPADITE HER MEDICAID COVERAGE.PATIENT IS OPENDED TO GOING TO [facility] OR [facility] SPOKE TO ALLYN WITH [facility] SHE WOULD LIKE FOR ME TO FAX INFO TO HER SHE WILL REVIEW IT AND GET BACK TO ME. WILL NOTIFIED ALETHA AT [facility] TO SEE IF THEY HAVE ANY OPENING.
--- NOTE | 2017-04-07 12:45 | NUR ---
SPOKE TO ALETHA AT [facility] SHE REPORTS THAT THEY ARE FULL AT THIS TIME. BUT TO CONTACT HER FIRST OF NEXT WEEK THEY MAY HAVE A BED.
--- NOTE | 2017-04-07 14:23 | NUR ---
A-NUTRITION F/U REFUSING MEALS AT TIMES. LIQUID STOOLS APPEAR TO BE IMPROVING. LABS: NA 139, K+ 4.2, GLU 96, BUN 18, SPONSORSHIP MANAGER 1.1, ALB 2.9 MEDS: REMERON INCREASED DIET RX: REGULAR W/ENSURE ENLIVE QID. PO INTAKE SINCE LAST F/U HAS BEEN REFUSALS-25%. PT DID EAT SOME [place] [employer]EN YESTERDAY. PT REPORTS APPETITE IS GETTING A LITTLE BETTER. THIS AM SHE ATE ALL OF HER OMELETTE AND SOME OF HER SON, BUT SKIPPED LUNCH, PER PT REPORT. DRIKING ENSURE ENLIVE. EST NUTR. NEEDS: 3911-2947 KCALS AND 77-102 GM PROTEIN D-AT NUTRITION RISK W/INADEQUATE ORAL INTAKE R/T ALTERED APPETITE AEB INTAKE RECORDS. I-CONTINUE W/ENSURE ENLIVE AND ENCOURAGE INCREASED PO INTAKE M/E-GOAL: PO INTAKE >/=50% BY DISCHARGE 1)F/U PO INTAKE, GI, AND POC IN 3-5 DAYS 2)ASSIST NEEDED
--- NOTE | 2017-04-07 17:21 | NUR ---
Significant Event:Significant Event:Is A/O.No c/o pain.Has Rt.chest port that is not going to be re-accessed.Has been up with walker and standby assist.Eating alittle better today.I did make her a rootbeer float and she said she really liked it.Waiting for placement. Follow up: Follow up:
--- NOTE | 2017-04-08 05:35 | NUR ---
Significant Event: IMANI IS ALERT AND ORIENTED. AMBULATED WTTH GB ONE ASSIST. RT CHEST PORT HAS BEEN DEACCESSED BECAUSE NO BLOOD RETURN. SHE NEED ENCOURAGED TO EAT LIKES ROOTBEER FLOATS. PLEASANT AND COOPERATIVE WITH CARES Follow up:
--- NOTE | 2017-04-08 15:43 | NUR ---
SIgnificant event: Has been up ambulating with gait belt, walker and 1 assist. Denies pain. Ate 50% of breakfast, refused lunch did have a root beer float. Continue to encouarge to eat.
--- NOTE | 2017-04-09 02:47 | NUR ---
SIGNIFICANT EVENT: VSS. NO IV. EATING VERY WELL. BM X2, SOLID STOOLS. UP WITH 1 ASSIST, GAIT BELT AND WALKER. MOVES VERY WELL. WAITING TO HEAR ABOUT PLACEMENT?
--- NOTE | 2017-04-09 15:42 | NUR ---
Significant event: Up in chair for lunch at 50% of a taco salad. refused breakfast. Denies pain. Gait steady, ambulates with 1 assist gait belt and walker.
--- NOTE | 2017-04-09 17:24 | NUR ---
ASSUMED CARE FROM [facility] AT 1600. PATIENT IS PLEASANT AND COOPERATIVE WITH CARES. ALERT AND ORIENTED X3. UP WITH SBA AND WALKER. HIGH FALL RISK. AWAITING PLACEMENT. PATIENT IS PLEASANT AND COOPERATIVE WITH CARES.
--- NOTE | 2017-04-10 03:16 | NUR ---
Significant Event: pt a/o. vss on RA, afebrile. Port to R chest, not accessed. MD order on chart for ok. Ambulates with SBA, gaitbelt and walker. Denies pain, denies nausea. Strict I/O, daily wt. No BM this shift. Had 2 jellos for bedtime snack. Awaiting Medicaid approval for SNF placement. Follow up: continue to monitor
--- NOTE | 2017-04-10 12:32 | NUR ---
SPOKE TO RACHEL AT [facility] SHE INFORMS ME THAT SHE HAS SPOKEN TO [facility] AND DELON HAS BEEN ASSINGED A FELLMONGERY WORKER HER NAME IS REI MOONDALLAS SHE IS IN THE [facility] AND HER CONTACT NUMBER IS [phone]. SHE SUGGESTS THAT I CONTACT HER TOMORROW TO CHECK ON THE STATUS OF THE MEDICAI. WILL CONT TO FOLLOW NEEDED.
--- NOTE | 2017-04-10 15:34 | NUR ---
A-NUTRITION F/U LOOSE STOOLS IMPROVED. NO C/O NAUSEA NO NEW LABS MEDS: METAMUCIL DIET RX: REGULAR W/ENSURE ENLIVE QID. PO INTAKE REF-50%; AVG IS 40% EST NUTR NEEDS: 0148-8864 KCALS AND 77-102 GM PROTEIN D-AT NUTRITION RISK W/INADEQUATE ORAL INTAKE R/T DECREASED APPETITE R/T RECENT ALTERED GI FXN AEB INTAKE RECORDS, WT LOSS, DIARRHEA, NAUSEA. I-CONTINUE W/ENSURE ENLIVE M/E-GOAL: PO INTAKE >/=50% BY NEXT F/U 1)F/U PO INTAKE, GI, WT, AND POC (3-5 DAYS) 2)ASSIST NEEDED
--- NOTE | 2017-04-10 18:02 | NUR ---
Patient is alert and oriented, 1 assist with walker and gait belt. Q shift VS started today. Only calls out when she needs to use the restroom. Does have a R) chest port that is deaccessed. 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 Refused her metamucil. Waiting for placement.
[2017-04-11 04:30] LABS: ANION GAP 12.4 (10.0-19.0); CALCIUM 9.1 mg/dL (8.5-10.5); POTASSIUM 4.4 mMol/L (3.7-5.1)
--- NOTE | 2017-04-11 04:58 | NUR ---
Significant Event: AAOX3. REG DIET. NO PIV ACCESS, PORT TO RIGHT CHEST - DE-ACCESSED AT THIS TIME. PT RESTED WELL THROUGHOUT SHIFT. VS QSHIFT. COOPERATIVE WITH CARES. Follow up: AWAITING PLACEMENT.
--- NOTE | 2017-04-11 09:40 | NUR ---
NOTIFIED REI WITH [facility] ([phone]) TO SEE IF SHE HAS STARTED PROCESS LU[place] FOR MEDICAID. SHE INFORMS ME THAT SHE HAS NOT STARTED IT AND THAT SHE IS BUSY AND WILL TRY TO GET TO IT SOON SHE CAN. SHE HOPES TO GET TO IT BY THE END OF THE WEEK. SHE WILL MAIL INFO FOR PATIENT TO COMPLETE AND AT THAT TIME WILL NEED COPY OF CURRENT BANK STATEMENT. ATTEMPTED TO SPEAK TO MOE WITH [employer] TO SEE IT SHE CAN HELP WITH THIS HAD TO LEAVE A MESSAGE ON HER VOICE MAIL.
--- NOTE | 2017-04-11 18:39 | NUR ---
Patient is alert and oriented, VSS, on room air. SBA with walker and gait belt. Has Reynaud's so wears gloves at all times. R) chest port has been deaccess. May need to reaccess to see if it has blood return then saline lock and deaccess again. It was charted that it had no blood return and that is why it was deaccess but the day before it was charted that it was heparinized and deaccessed. She went to the cancer center to get all of her radiation figured out but was not given radiation today. She is still waiting for insurance and needs placement.
--- NOTE | 2017-04-12 05:21 | NUR ---
SIGNIFICANT EVENT: VSS. NO IV. USES WALKER AND GAIT BELT WITH STANDBY ASSIST. WAITING FOR PLACEMENT AND INSURANCE ISSUES. EATING AND DRINKING WELL. 1 SOLID BM DURING SHIFT.
--- NOTE | 2017-04-12 14:59 | NUR ---
Significant Event:Is A/O.Has Rt upper chest portacath that is not accessed.Has had no c/o pain & no N/V.Went to cancer center this afternoon.Eating better.Is up with walker & standby assist.Still waiting for placement. Follow up:
--- NOTE | 2017-04-13 04:57 | NUR ---
Significant Event: A/O X3 AND COOPERATIVE WITH CARES. DENIES PAIN. UP WITH 1 ASSIST AND WALKER. DOES HAVE PORT BUT IS NOT ACCESSED AT THIS TIME. IS TO HAVE ENSURES WITH ALL MEALS, IS EATING BETTER. IS HAVE RADIATION TREATMENTS. BED ALARM ON FOR SAFETY, CALLING APPROPRIATELY. SLEPT WELL THROUGH NIGHT. AWAITING PLACEMENT. Follow up:
--- NOTE | 2017-04-13 15:09 | NUR ---
Significant Event: Patient is alert and oriented x3. VSS, pulse running 105 and on RA. Vital signs every shift. Has port to the right upper chest, but is not accessed. Can be accessed if needed. Has been very good about drinking the ensure, but has not really been interested in her trays today. Likes root beer floats. Voiding okay. Had a BM yesterday. Waiting on medicaid for placement. Has reynauds- wears gloves. Cooperative with cares.
--- NOTE | 2017-04-13 15:32 | NUR ---
A - NUTRITION FOLLOW-UP GETTING RADIATION. WAITING FOR PLACEMENT. WT INCREASED SINCE 04/10. LABS: PRE-ALB 23 MEDS: METAMUCIL, REMERON. DIET: REGULAR W/ ENSURE ENLIVE QID. INTAKE 46% X10 MEALS, IMPROVED SINCE LAST VISIT. EATING BETTER PER SHIFT REPORT. PT REPORTED FAIR APPETITE BUT LIKES ENSURE ENLIVE AND HAS BEEN DRINKING 3-4 BOTTLES PER DAY. DID NOT EAT ANYTHING FOR LUNCH BUT HAD A BOTTLE OF ENSURE ENLIVE. EST NEEDS: [id number] KCAL, 77-102 GRAMS PROTEIN, FLUID NEEDS: 1ML/KCAL D - INADEQUATE ORAL INTAKE RELATED TO ALTERED APPETITE EVIDENCED BY PO 46% X10 MEALS. I - CONTINUE W/ ENSURE ENLIVE QID M/E - GOAL: PT WILL BE ABLE TO TOLERATE >50% OF MEALS AND AT LEAST THREE ORAL SUPPLEMENTS PER DAY IN 4-6 DAYS.
--- NOTE | 2017-04-14 04:57 | NUR ---
Pt. alert and oriented x3. VSS-tachy at times. RA. Denies pain. SBA with walker. No chest port accessed at this time. Wears gloves for raynauds. Ensures 4x a day. Did order an omlette for supper and ate most of it. Voiding ok. Loose BM x1 this shift. Waiting on Medicaid for placement. Cooperative with cares.
--- NOTE | 2017-04-14 18:00 | NUR ---
AAOx3. Cooperative with cares. Up w/SBA and walker. VS Qshift, stable, afebrile, on RA. Showered today. Voiding well. Outside today w/PT, then to [facility] for treatment. No IV access. Ate bfast(eggs) and lunch(burger) today. Takes Ensures. Waitiing on placement.
--- NOTE | 2017-04-15 05:39 | NUR ---
Pt. alert and oriented. VSS. RA. VS x1 per shift. Port not accessed. Has radiation M-F. Has been eating a little better. SBA with walker. Denies pain. Tachy. Ensures 4x a day. Voiding ok. Wears gloves for Raynauds. Cooperative with cares. Waiting on medicaid placement.
--- NOTE | 2017-04-15 18:43 | NUR ---
AAOx3. Cooperative with cares. Up w/SBA; sometimes gets up independently in daytime (getting frustrated w/having bed alarm). No IV access. Has radiation daily on weekdays. Ambulated in hallways. Had small amounts of meals today, Ensures, and rootbeer float. Voiding well. Often misses hat partially or completely even after it has been repositioned. Waiting on placement.
--- NOTE | 2017-04-16 04:07 | NUR ---
Pt. alert and oriented. VSS. RA. SBA with walker. Bed alarm on at night. VS x1 shift. Slept off an on. Denies pain. UP in chair for supper. Port not accessed. Wears gloves for Raynauds. Radiation M-F. Cooperative with cares. Waiting on caid for placement.
--- NOTE | 2017-04-16 18:44 | NUR ---
AAOx3. Refused shower today. No IV access. Radiation daily M-F. Needs assistance wiping after BR use. Bites of meals with Ensures.
--- NOTE | 2017-04-17 04:03 | NUR ---
Pt. alert and oriented. RA. VSS. SBA. Bed alarm on at night. No IV access. Radiation daily on weekdays. Ate all of supper. Voiding well - sometimes misses hat. Still some loose stools. VS x1 per shift. Wears gloves for Raynauds. Waiting on medicaid to get placement. Cooperative with cares.
--- NOTE | 2017-04-17 14:04 | NUR ---
A-NUTRITION F/U RADIATION DAILY M-F. LOOSE STOOLS AT TIMES LABS: NA 140, K+ 4.4, GLU 98, BUN 20, PRODUCT STRATEGY DIRECTOR 1.0 DIET RX: REGULAR W/ENSURE ENLIVE TID. TAKING 100% OF ENSURE 3-4 X PER DAY. PO INTAKE OF MEALS IS REF-100%. EST NUTR NEEDS: 7151-9430 KCALS AND 77-102 GM PROTEIN. ENSURE ENLIVE PROVIDING 4339-3502 KCALS AND 60-80 GM PROTEIN D-AT NUTRITION RISK W/INADEQUATE ORAL INTAKE AT TIMES R/T ALTERED APPETITE AEB INTAKE RECORDS. I-CONTINUE W/ENSURE ENLIVE QID M/E-GOAL: PO INTAKE >/=50% BY DISCHARGE 1)F/U PO INTAKE, SUPPLEMENT, AND POC IN 4-6 DAYS 2)ASSIST NEEDED
--- NOTE | 2017-04-17 17:04 | NUR ---
PATIENT ALERT AND ORIENTED X3. VSS. ON DAILY VITAL SIGNS. UP CGA. NO PRNGS GIVEN. PATIENT HAD RADIATION TODAY. PLEASANT AND COOPERATIVE WITH CARES. AWATING PLACEMENT. NO CHANGES
--- NOTE | 2017-04-18 02:41 | NUR ---
Significant Event: PT AO. Q SHIFT ASSESSMENTS. R CHEST PORT, NOT ACCESSED. AMBULATES INDEPENDENTLY IN DAY, WITH SUPERVISION AT NIGHT- WALKER. TOLERATING REGULAR DIET, NO NAUSEA. DENIES PAIN. CURRENTLY RECIEVING RADIATION THERAPY. CM WORKING ON PLACEMENT. PT STATES WILL SHOWER WITH THERAPY IN THE MORNING. Follow up: CONTINUE TO MONITOR
[2017-04-18 06:19] LABS: ANION GAP 12.9 (10.0-19.0); CALCIUM 9.1 mg/dL (8.5-10.5); POTASSIUM 3.9 mMol/L (3.7-5.1)
[2017-04-18 11:23] LABS: BASOPHIL % 0.5 %; EOSINOPHIL % 0.5 %; HEMATOCRIT 30.5 % (33.0-46.0); HEMOGLOBIN 9.2 g/dL (10.0-15.0); IMMATURE GRANULOCYTE % 0.7 %; LYMPHOCYTE # 0.9 K/uL (0.8-4.0); LYMPHOCYTE % 22.2 %; MCH 28.1 pg (27.0-34.0); MCHC 30.2 gm/dL (32.0-36.5); MCV 93.3 fl (83.0-98.0); MONOCYTE # 0.4 K/uL (0.0-1.0); MONOCYTE % 8.5 %; MPV 9.7 fl (9.4-12.4); NEUTROPHIL # (ANC) 2.9 K/uL (1.8-7.8); NEUTROPHIL % 67.6 %; NRBC % 0 /100WBC (0-0.00); PLATELET COUNT 249 K/uL (150-450); RBC 3.27 M/uL (3.50-5.50); WBC 4.2 K/uL (4.0-11.0)
--- NOTE | 2017-04-18 15:54 | NUR ---
Is A/O.Has Rt.chest port that is not accessed.Has had several watery brown stools & did test positive for C-diff.No c/o pain.Has been up by self in room with use of walker.Working with PT/OT.Has been going to cancer center for radiation.
--- NOTE | 2017-04-19 04:42 | NUR ---
Significant Event: Pt alert and oriented. Ok to be up ad mark during the day. Bed alarm on at night with no attempts to get out of bed. Assesments q shift and WNL. C-diff precautions and taking oral vanco. Refused dinner last night, had jello for pm snack. Follow up: Daily radiation. Working on placement.
--- NOTE | 2017-04-19 10:22 | NUR ---
SPOKE TO MOE WITH J[facility] TO SEE IF THEY ARE CLOSE GETTING [place]ENET[place] ON MEDICAID. SHE INFORMS ME THAT [facility] NEED TO SU[facility] MORE PAPER WORK TO [facility] AND THEY ARE IN THE PROCESS OF GETTING IT FOR THEM. WILL CONT TO FOLLOW NEEDED.
--- NOTE | 2017-04-19 16:43 | NUR ---
Is A/O.In isolation for C-diff. No c/o pain.Not much appetite.Up & about by self during the day.Uses a walker.Voiding ok. Goes to radiation every day Mon-Fri.around 11:00.
--- NOTE | 2017-04-20 04:12 | NUR ---
Pt. alert and oriented. VSS. RA. VS x1 per shift. Still refusing meals. Did request 3 tubs of jello early mornig. Bed alarm on at night. Iso for c-diff. Oral vanco. Loose stools. Voiding ok. No access for port. 1 assist with walker. Radiation during the week around 11. Daily weight. Strict I&O. Cooeprative with cares.
--- NOTE | 2017-04-20 14:31 | NUR ---
Significant event: Up in chair, with encouragement. Refused breakfast, did eat 25% of lunch. Had radiation therapy this am. Denies pain. Had 1 mushy stool and one stool of 200ml of liquid BM. Ambulates with walker, gait belt and 1 assist. Is alert and oriented.
--- NOTE | 2017-04-21 04:21 | NUR ---
Patient is alert and oriented, VSS, in isolation for C.Diff. Does have a R) chest port that is not accessed. Receives radiation M-F. Independent in room during the day per PT/OT with a walker. Waiting for placement.
[2017-04-21 04:39] LABS: ANION GAP 11.9 (10.0-19.0); CALCIUM 9.2 mg/dL (8.5-10.5); CREATININE 0.9 mg/dL (0.5-1.1); POTASSIUM 3.9 mMol/L (3.7-5.1)
--- NOTE | 2017-04-21 09:59 | NUR ---
A - NUTRITION F/U. PERTINENT LABS WNL. PT WT 155-157# THIS WEEK. HAVING LOOSE STOOLS, IN ISO FOR C DIFF. PT GOES TO XRT DAILY M-F. DIET: REGULAR W/ ENSURE QID; PT TAKES 3-4 DAILY = 2656-8836 KCALS, 60-80 GM PROTEIN. MEAL INTAKE IS REFUSED TO 25%. INTAKE UNCHANGED. AWAITING PLACMENT. D - AT RISK W/ INADEQUATE ORAL INTAKE R/T DECREASED APPETITE AEB INTAKE RECORD. I - GOAL: 25-50% INTAKE BY DISMISSAL. M/E - WILL CONT TO MONITOR. WILL F/U IN 4-6 DAYS.
--- NOTE | 2017-04-21 16:37 | NUR ---
Significant event: Up in chair and up in room independently. When uses BR will call for assistance. Denies pain. Went to radiation therapy this am. Ate most of an omelette this am, refused lunch. Has had 2 large liquid BM. Has been cheerful and social with staff today.
--- NOTE | 2017-04-22 03:33 | NUR ---
Patient is alert and oriented, VSS, on room air. Independent. In isolation for C.Diff. Has has small amounts of stool. Ate 75% of supper. Had radiation yesterday, scheduled M-F. Will continue to monitor stools.
--- NOTE | 2017-04-22 17:39 | NUR ---
Significant Event: Patient up ad mark in room. Slept in some this a.m. Did get up and ambulated with physical therapy and tolerated well. Ate well for meals. Had a total of 1500 ml out but this was urine and stool mixed together. Stool was all liquid as of yet. Patient had 1500 ml in orally. Denies pain. Will call when she has a stool so nurse/CLINICAL REVIEW NURSE can help patient with pericare and aloe vesta application. Does have right chest port that is currently not accessed, but is accessible if needed. Wears gloves due to history of raynauds. Continues in cdiff, contact isolation. Is currently being treated for this with oral vancomycin. Follow up: Continue to monitor.
--- NOTE | 2017-04-23 04:42 | NUR ---
Significant Event: PATIENT IS ALERT AND ORIENTED CAN BE FORGETFUL AT TIMES. AMBULATES IN ROOM INDEPENDENTLY WITH WALK AND STAND BY ASSIST AT NIGHT. VSS WNL. ON ROOM AIR CONTINUES TO HAVE LOOSE WATERY STOOLS HAD 5 THIS SHIFT. IN ISOLATION FOR C-DIFF. C-DIFF. Follow up:
--- NOTE | 2017-04-23 17:14 | NUR ---
Significant Event: Patient up to bathroom ad mark, calls for help with pericare and then is able to ambulate back to bed on her own. Patient has slept most of the day. WOOD CASKET MAKER able to get patient to take an ensure and then patient did order an omelet for supper. Supper is here but patient not hungry right now so she stated she would eat later. Vanco oral discontinued and dificid started for treatment of cdiff. Patient glad as she did not like the taste of the vanco. Follow up: Continue to monitor.
--- NOTE | 2017-04-24 04:36 | NUR ---
Significant Event: PATIENT IS ALERT AND ORIENTED. VERY PLEASANT. PATIENT IS UP INDEPENDENTLY IN HER ROOM AND CALLS APPROPRIATELY WHEN UP TO THE BATHROOM. 2 REPORTED STOOLS LAST NIGHT. ON PRECAUTIONS FOR C.DIFF. DEFICID STARTED YESTERDAY. WEARS GLOVES AT ALL TIMES FOR HER RAUNAUDS. POOR APPETITE. DID DRINK 2 ENSURES YESTERDAY. CONTINUES TO HAVE LOOSE STOOLS. QSHIFT ASSESSMENTS. DENIES ANY PAIN OR DISCOMFORT. Follow up:
[2017-04-24 05:39] LABS: BASOPHIL % 0.2 %; EOSINOPHIL # 0.1 K/uL (0.0-0.5); EOSINOPHIL % 1.2 %; HEMATOCRIT 32.4 % (33.0-46.0); IMMATURE GRANULOCYTE # 0.1 K/uL (0.0-0.3); IMMATURE GRANULOCYTE % 1.2 %; LYMPHOCYTE # 0.9 K/uL (0.8-4.0); MCH 28.2 pg (27.0-34.0); MCHC 30.9 gm/dL (32.0-36.5); MCV 91.3 fl (83.0-98.0); MONOCYTE # 0.4 K/uL (0.0-1.0); MONOCYTE % 7.9 %; MPV 10.2 fl (9.4-12.4); NEUTROPHIL # (ANC) 3.6 K/uL (1.8-7.8); NEUTROPHIL % 71.5 %; NRBC % 0 /100WBC (0-0.00); PLATELET COUNT 205 K/uL (150-450); RBC 3.55 M/uL (3.50-5.50); RDW-CV 14.4 % (11.9-14.6); WBC 5.1 K/uL (4.0-11.0)
[2017-04-24 05:57] LABS: ALBUMIN 3.1 gm/dL (3.5-5.0); ANION GAP 14.9 (10.0-19.0); CALCIUM 9.2 mg/dL (8.5-10.5); CREATININE 1.1 mg/dL (0.5-1.1); POTASSIUM 3.9 mMol/L (3.7-5.1); TOTAL BILIRUBIN 0.2 mg/dL (0.0-1.5); TOTAL PROTEIN 7.6 g/dL (6.0-8.4)
--- NOTE | 2017-04-24 17:08 | NUR ---
Significant event: Patient is alert and oriented. VSS. on room air. Is up independently in room with walker. Will call for assistance when needs it. NOt much appetite today. Is in C-diff isolation. Has had 5 stools today. Is q shift assessment. No complaints of pain. Sleeps a lot. Cooperative with cares.
--- NOTE | 2017-04-25 04:37 | NUR ---
Pt. alert and oriented. SBA with walker. VSS. RA. VS x1 per shift. No access for chest port. Radiation daily. Isolation for c-diff. Gloves for Raynauds. Will call for assistance after using BR. Denies pain, SOB, nausea. Still loose stools. Poor appetite. Cooperative with cares.
--- NOTE | 2017-04-25 16:25 | NUR ---
Is A/O.Has Rt upper chest port that is not accessed.Going to radiation every day.No c/o pain.Is up in room by self with use of walker.Still having diarrhea.Not much appetite.5 diarrhea stools today.No c/o pain.
--- NOTE | 2017-04-26 04:23 | NUR ---
Significant Event: Patient alert and oriented X4. Up ad mark during day. Daily weight. VSS and on room air. VS once a shift. Denies pain. C-diff positive. 3 loose BMs this shift. Waiting for placement Follow up:
--- NOTE | 2017-04-26 10:15 | NUR ---
SPOKE TO MOE WITH JAROD AND SHE INFORMS ME THAT THEY ARE STILL WORKING WITH [facility] TO GET [place]ET[place] ON MEDICAID.
--- NOTE | 2017-04-26 13:35 | NUR ---
A-CONSULT RECEIVED FOR NON-DAIRY PROTEIN SOURCE FOR SUPPLEMENT C-DIFF (+); 8-9 LOOSE STOOLS PER DAY CBW (04/24): 69.4 KG; WT DOWN 1.1 KG X 1 WEEK 04/24 LABS: NA 138, K+ 3.9, GLU 125, BUN 19, DINING SERVER 1.1, ALB 3.1 MEDS: COLESTID STARTED DIET RX: REGULAR W/ENSURE ENLIVE QID. PO INTAKE REFUSAL-100%; AVG IS 58%. THIS IS IMPROVED FROM LAST F/U OF REF-25%, BUT FOOD SELECTIONS AT MEALS IS LIMITED. D-AT NUTRITION RISK W/INADEQUATE ORAL INTAKE R/T ALTERED GI FXN AEB INTAKE RECORDS, DIARRHEA, WT LOSS. I-1)D/C ENSUR ENLIVE QID 2)START VANILLA GLUCERNA TID M/E-GOAL: PT WILL CONSUME >/=50% OF NUTRITION SUPPLEMENT 1)F/U SUPPLEMENT TOLERANCE IN 1-2 DAYS 2)ASSIST NEEDED
--- NOTE | 2017-04-26 16:31 | NUR ---
Significant Event:Is A/O.Still isolation for c-diff.Rt.chest portacath that is not accessed.Has been amb with walker & 1 assist.Radiation daily.No c/o pain.Not much appetite. Follow up:
--- NOTE | 2017-04-27 14:57 | NUR ---
A-CONSULT RECEIVED FOR NON MILK PROTEIN SUPPLEMENTS VISITED W/PT RE: SUPPLEMENTS. PER PT, WHEN SHE WAS IN HER 30s SHE HAD A BOUT OF ULCERATIVE COLITIS. SHE REMOVED DAIRY FROM HER DIET UNITL IT RESOLVED, AND THEN SHE SLOWLY ADDED DAIRY BACK INTO HER DIET AND HAS HAD DAIRY SINCE THAT TIME. PT COULD NOT SAY IF SHE WAS ALLERGIC TO THE MILD PROTEIN, OR JUST WAS LACTOSE INTOLERANT. THE ONLY SUPPLEMENT THAT WE HAVE THAT HAS NO MILK PROTEIN IN IT IS KARRIE. DISCUSSED THIS WITH PT, ALONG WITH THE IMPORTANCE OF HER EATING MORE, IF SHE WAS GOING TO BE UNABLE TO HAVE ENSURE ENLIVE (LACTOSE FREE), THE ENSURE HAS BEEN PROVIDING THE BULK OF HER PROTEIN AND CALORIES. PT STATES THAT SHE CANNOT EAT BIG MEALS. RECOMMENDED THAT SHE EAT 5-6 SMALL MEALS THROUGH OUT THE DAY. PT STATES SHE SKIPS BREAKFAST NORMALLY BECAUSE SHE IS SLEEPING. PT WAS AGREEABLE TO TRYING SMALLER MEALS THROUGHOUT THE DAY. VISITED W/DR. HAGAN ABOUT THE CONVERSATION W/PT AND LACK OF SUPPLEMENT OPTIONS WITH NO MILK PROTEIN. DR. HAGAN OKAY WITH LACTOSE FREE SUPPLEMENTS; MILK PROTEIN ALLERGY/RESTRICTION REMOVED. WENT IN AND LET PT KNOW ABOUT OKAY FOR LACTOSE FREE SUPPL. WILL SEND A BREAKFAST EVERY DAY AT 10:00 PER PT BREAKFAST PICKS. PT WILL ORDER OWN LUNCH AND THEN A SNACK OF CHICKEN SALAD AND CRACKERS WILL BE SENT UP AT PM SNACK AND THEN PT WILL ORDER HER OWN DINNER. IF PT DOES NOT ORDER HER MEAL, SHE WILL BE CALLED AND ASKED FOR HER LUNCH AND/OR DINNER ORDER. I-1)BREAKFAST AT 10:00 WILL BE SENT UP 2)ADD PM SNACK 3)ENSURE ENLIVE BID M/E-GOAL: PO INTAKE >/=50% 1)F/U PO INTAKE, NUTRITION INTERVENTIONS, WT, AND POC IN 4-5 DAYS 2)ASSIST NEEDED
--- NOTE | 2017-04-27 16:00 | NUR ---
SUPPORITVE VISIT: MEET WITH PATIENT AT LENGTH. PRESENTED TO HER THE OPTION OF GOING TO [facility] AND SHE IS IN AGREEMENT TO THIS. [facility] IS STILL WORKING ON GETTING HER ON MEDICAID. SHE HAD MORE INFO AT THE BEDSIDE THAT THEY NEED AND I MADE COPIES OF THIS AND GAVE IT TO MOE WITH JAROD. SHE WILL SEND THIS INFO TO [facility].
--- NOTE | 2017-04-27 16:25 | NUR ---
Significant Event:Is A/O.Up with walker & standby assist.Went outside with PT.Is working with OT/PT.No c/o pain.To radiation every day.4 stools today. Still waiting for placement. Follow up:
--- NOTE | 2017-04-28 04:12 | NUR ---
Pt. alert and oriented. RA. VSS. VS x1 per shift. Radiation daily. SBA/IND with walker. Still loose stools. NO Port access. Contact iso for c-diff. Waiting for placement. Cooperative with cares.
--- NOTE | 2017-04-28 11:23 | NUR ---
NOTIFIED [facility] AND SPOKE TO DERRICK MADE REFERRAL TO [facility]. SHE INFORMS ME THAT THEY REALLY CAN NOT DO ANYTHING UNTIL PATIENT GETS MEDICAID BUT SHE IS GOING TO MAKE REFERRAL TO [facility] WHO HELPS PATIENT'S GET [facility]ILLED [facility]UR[facility] WITH [facility] AND THEY WILL START BY PUTTING PATIENT IN THE SYSTEM. SHE WILL HAVE JEANNE CONTACT ME.
--- NOTE | 2017-04-28 13:24 | NUR ---
Significant Event: Pt denies pain. Up with standby assist. Continues to be in iso for cdiff, has has 3 loose stools so far today. Had radiation therapy. Has a port but is not accessed. Follow up:
[2017-04-29 05:18] LABS: BASOPHIL % 0.6 %; EOSINOPHIL % 1.1 %; HEMATOCRIT 32.2 % (33.0-46.0); IMMATURE GRANULOCYTE % 0.8 %; LYMPHOCYTE # 0.6 K/uL (0.8-4.0); LYMPHOCYTE % 16.2 %; MCH 27.9 pg (27.0-34.0); MCHC 31.1 gm/dL (32.0-36.5); MCV 89.7 fl (83.0-98.0); MONOCYTE # 0.4 K/uL (0.0-1.0); MONOCYTE % 11.8 %; NEUTROPHIL # (ANC) 2.5 K/uL (1.8-7.8); NEUTROPHIL % 69.5 %; NRBC % 0 /100WBC (0-0.00); PLATELET COUNT 183 K/uL (150-450); RBC 3.59 M/uL (3.50-5.50); WBC 3.6 K/uL (4.0-11.0)
[2017-04-29 05:34] LABS: ANION GAP 11.3 (10.0-19.0); CALCIUM 9.2 mg/dL (8.5-10.5); CREATININE 1.1 mg/dL (0.5-1.1); POTASSIUM 4.3 mMol/L (3.7-5.1)
--- NOTE | 2017-04-29 05:35 | NUR ---
Significant Event: Pt up ad mark during the day. bed alarm on at night. Alert and oriented. No c/o pain. Reported 2 bm's this shift. Cooperative with cares. Awaiting placement. Follow up:
--- NOTE | 2017-04-29 16:41 | NUR ---
PATIENT ALERT AND ORIENTED X3. VSS. UP WITH SBA AND WALKER. LOOSE BM X2 TODAY. COCCYX RED, ALOE VESTA APPLIED. EPISODE X1 THIS AM WHERE PATIENT STRUGGLED TO GET LARGE PILL DOWN SAYING IT GOT "STUCK" IN HER THROAT, WAS ABLE TO GET PILL DOWN WITH WATER, ENCOURAGED PATIENT TO HAVE NURSES BREAK UP LARGE PILLS FOR HER TO AVOID FURTHER EPISODES. NO PRNS GIVEN. PAC REMAINS UNACCESSED. REMAINS ON QSHIFT VITALS AND ASSESSMENTS. DENIES NEEDS, REFUSED SHOWER TODAY. PATIENT PLEASANT AND COOPERATIVE WITH CARES. ENCOURAGE JERRI-CARES.
--- NOTE | 2017-04-30 04:10 | NUR ---
Significant Event: Patient alert and oriented X4. Up ad mark during day. C-Diff positive. Vitals every shift. Daily weight. Unaccessed port. Radiation Mon-Fri. Waiting on placement. Follow up: Monitor vitals
--- NOTE | 2017-04-30 16:31 | NUR ---
Significant event: Up in room ad mark. Had 2 stools today, one was semiformed. Appetite very poor. Up in chair this am for an hour, encouraged to sit up more. Had shower today.
--- NOTE | 2017-05-01 04:28 | NUR ---
Significant Event: Patient alert and oriented X4. VS once a shift. Unaccessed R) port. Radiation Mon-Fri. C-Diff positivie. Daily weight. Waiting for placement. Follow up: No pain
--- NOTE | 2017-05-01 14:42 | NUR ---
A-NUTRITION F/U RADIATION M-F; C-DIFF (+) STOOL AMOUNT AND FREQUENCY SLOWLY IMPROVING LABS: ALB 3.1. NO NEW MEDS DIET RX; REGULAR W/ENSURE ENLIVE TID. PO INTAKE REFUSALS-50% D-AT NUTRITION RISK W/INADEQUATE ORAL INTAKE R/T ALTERED APPETITE SECONDARY TO ALTERED GI FXN AEB INTAKE RECORDS, C-DIFF (+), PT REPORT I-1)CONTINUE W/ENSURE ENLIVE TID 2)IF DESIRED, RECOMMEND ENTERAL FEEDINGS D/T PT NOT MEETING NUTR. NEEDS WITH PO INTAKE. M/E-GOAL: PO INTAKE >/=50% BY DISCHARGE 1)F/U PO INTAKE, SUPPLEMENT, WT, AND POC IN 3-5 DAYS 2)ASSIST NEEDED
--- NOTE | 2017-05-01 18:06 | NUR ---
Significant Event:A/O.No c/o pain.Up ad mark with walker.Radiation every day.Had 3 loose stools today. Follow up:
--- NOTE | 2017-05-02 05:42 | NUR ---
Significant Event: PATIENT IS ALERT AND ORIENTED. AMBULATES WITH GB WALKER AND ONE ASSIST. VSS WNL. NO IV ACCESS ON ROOM AIR. DIET REGULAR. ISO FOR C DIFF. HAD 4 SEMI LOOSE STOOLS. DAILY WT., PATIENT IS WAITING FOR PLACEMENT. Follow up:
--- NOTE | 2017-05-02 17:32 | NUR ---
Is A/O.Up by self with walker.To radiation every day.Isolation due to C-diff.Has had 3-4 small loose stools but getting more form to them.No c/o pain.
--- NOTE | 2017-05-03 04:39 | NUR ---
Pt. alert and oriented. RA. VSS. VS x1 per shift. Regular diet. Encourage ambulation. SBA/IND with walker. Needs help with pericare. 3 loose stools this shift. No port access. Iso for c-diff. Radiation daily. Daily weight. Cooperative with cares.
[2017-05-03 04:49] LABS: BASOPHIL % 0.3 %; HEMOGLOBIN 10.1 g/dL (10.0-15.0); IMMATURE GRANULOCYTE % 0.3 %; LYMPHOCYTE # 0.5 K/uL (0.8-4.0); LYMPHOCYTE % 16.2 %; MCH 28.1 pg (27.0-34.0); MCHC 31.6 gm/dL (32.0-36.5); MCV 89.1 fl (83.0-98.0); MONOCYTE # 0.3 K/uL (0.0-1.0); MONOCYTE % 8.7 %; MPV 9.8 fl (9.4-12.4); NEUTROPHIL # (ANC) 2.3 K/uL (1.8-7.8); NEUTROPHIL % 73.5 %; NRBC % 0 /100WBC (0-0.00); PLATELET COUNT 167 K/uL (150-450); RBC 3.59 M/uL (3.50-5.50); RDW-CV 13.7 % (11.9-14.6); WBC 3.1 K/uL (4.0-11.0)
[2017-05-03 05:07] LABS: ALBUMIN 3.2 gm/dL (3.5-5.0); ANION GAP 13.7 (10.0-19.0); CREATININE 1.1 mg/dL (0.5-1.1); POTASSIUM 3.7 mMol/L (3.7-5.1); TOTAL PROTEIN 7.2 g/dL (6.0-8.4)
[2017-05-03 05:08] LABS: TOTAL BILIRUBIN 0.3 mg/dL (0.0-1.5)
--- NOTE | 2017-05-03 14:03 | NUR ---
Significant Event: Pt denies pain. Up ad mark in room. Contiues to have small loose stools. Had radiation today. In isolation for cdiff. Follow up:
--- NOTE | 2017-05-04 04:43 | NUR ---
Pt. alert and oriented. RA. VSS. VS x1 per shift. Regular diet. Encourage ambulation. SBA/IND with walker. Will call for help after using BR. 2 loose stools this shift. Iso for c-diff. Radiation daily. Daily weight. Cooperative with cares. Waiting on Medicaid for placement.
--- NOTE | 2017-05-04 10:25 | NUR ---
A - NUTRITION F/U. NO NEW LABS. CBW: 67.7 KG. XRT DAILY. STOOLING SLOWING. DIET: REGULAR W/ ENSURE QID. MEAL INTAKE 0-75%. TAKES ENSURE ROUTINELY. AWAITING PLACEMENT. D - AT RISK W/ INADEQUATE ORAL INTAKE R/T DECREASED APPETITE AEB INTAKE RECORD. I - GOAL: 50% OR BETTER INTAKE BY DISMISSAL. M/E - WILL CONT TO MONITOR INTAKE AND WT AND ASSIST NEEDED. F/U IN 5-7 DAYS.
--- NOTE | 2017-05-04 16:04 | NUR ---
Significant Event: pt alert and oriented. up in the chair for a ride outside this shift. radiation this am. c/o's discomfort to rt foot. norco given this afternoon for that. 2 loose stools this shift. calls for assist with pericare. iso for c-diff. daily wt. needs reminded to call for meals. Follow up:
--- NOTE | 2017-05-05 07:34 | NUR ---
Significant Event: TOOK OVER CARES FOR JAVIER Tapia. PATIENT A/O X3 AND COOPERATIVE WITH CARES. IN ISOLATION FOR C-DIFF. VITALS Q SHIFT. DENIES PAIN. RADIATION M-F. PER [facility] WILL HAVE PROCEDURE ABOUT 1000 AND NEEDS 2 IMODIUM AT 0900. UP AD SJ DURING NIGHT. SLEPT WELL THROUGH NIGHT. DOES HAVE RAYNAUD'S AND WEARS GLOVES. HAD 2 BM'S THIS SHIFT. Follow up:
--- NOTE | 2017-05-05 17:59 | NUR ---
Significant Event: patient alert and oriented x3. had radiation today. denies pain when asked. up to chair and bathroom ad mark. received immodium 4mg this am at 0900, no stools reported this shift. needs reminder to call for meals. slept most of shift. Follow up:
--- NOTE | 2017-05-06 06:29 | NUR ---
Patient is alert and oriented, independent during the day with a walker. No IV access, isolation for c. diff and hazardous precautions for radiation on -. No BMs overnight. Waiting for medicaid for placement.
--- NOTE | 2017-05-06 16:53 | NUR ---
Significant Event:Is A/O.No c/o pain.No N/V.Voiding ok.Only 2 very small loose stools.Is up by self with walker.Lt upper port that is not accessed. Follow up:
--- NOTE | 2017-05-07 02:28 | NUR ---
Significant Event: Uneventful night, did have a norco at for pain in bilateral feet that she states is stabbing. Rests throughout the night. Follow up: Continue to monitor.
--- NOTE | 2017-05-07 17:57 | NUR ---
Significant Event:Is A/O.Amb by self with walker.Working with PT/OT.Has portacath that is not accessed.Radiation Mon thru Fri.No c/o pain. 2 loose stools todday.Isolation for C-diff. Follow up:
--- NOTE | 2017-05-08 04:52 | NUR ---
Significant Event:Patient up ad-mark in room reported 3 loose stools. Denies pain other than neuropathy pain. Uneventful night. Follow up: Continue to monitor.
--- NOTE | 2017-05-08 14:03 | NUR ---
Significant Event: Pt denies pain. Up ad mark in room. Continues to have loose stools, needs encouraged to do own pericare if capable. Continues in contact isolation for cdiff. Follow up:
--- NOTE | 2017-05-08 14:16 | NUR ---
A-NUTRITION F/U PT WAITING FOR PLACEMENT. UP IN ROOM AD SJ. RADIATION M-F. LOOSE STOOLS. WT HAS BEEN 68-69 KG X 2 WEEKS DIET RX: REGULAR W/ENSURE ENLIVE QID, SNACKS BID. PO INTAKE 0-50%. TAKES ENSURE ENLIVE ROUTINELY. D-PT AT NUTRITION RISK W/INADEQUATE ORAL INTAKE R/T ALTERED APPETITE AEB INTAKE RECORDS, PT REPORT I-CONTINUE W/CURRENT NUTRITION INTERVENTIONS. M/E-GOAL: PO INTAKE PT ACCEPTS/TOLERATES 1)F/U PO INTAKE, WT, AND POC IN 4-6 DAYS 2)ASSIST NEEDED
--- NOTE | 2017-05-09 10:15 | NUR ---
SPOKE TO DEZ WITH [employer] TO SEE IF PATIENT IS GETTING CLOSE TO GETTING ON MEDICAID. SHE INFORMS ME THAT SHE IS GOING TO MEET PATIENT TODAY TO HELP HER GET IN CONTACT WITH HER BACK REGARDING THE BANK STATEMENTS NEEDED FOR [facility].
--- NOTE | 2017-05-09 16:58 | NUR ---
Significant Event: Alert and oriented X 3. Pt denies any pain. Up ad mark in room. Contact isolation for c-diff. Patient went to cancer center today. Pleasant and cooperative with cares. Follow up:
--- NOTE | 2017-05-10 04:19 | NUR ---
SIGNIFICANT EVENT: Pt alert &oriented. Called occasionally for assist with pericares. VS and assess 1x per shift. R) chest port is not accessed. Had radiation on 05/09/17. VSS on RA. Contact isolation for CDiff. Denies pain. Pleasant and cooperative with cares.
--- NOTE | 2017-05-10 16:07 | NUR ---
Significant Event:Is A/O.Amb in [place] with PT & use of walker.Has chest port that is not accessed.No c/o pain.Up in room with walker by self.Has had 2 small liq lt.brown stools.Is to have colonoscopy tomorrw.Prep will start at 1800 today.To be NPO at 0500 tomorrow,05/11. Follow up:
[2017-05-11 04:57] LABS: HEMATOCRIT 36.3 % (33.0-46.0); HEMOGLOBIN 11.4 g/dL (10.0-15.0); MCH 27.8 pg (27.0-34.0); MCHC 31.4 gm/dL (32.0-36.5); MCV 88.5 fl (83.0-98.0); MPV 8.9 fl (9.4-12.4); PLATELET COUNT 176 K/uL (150-450); RDW-CV 13.4 % (11.9-14.6); WBC 3.3 K/uL (4.0-11.0)
--- NOTE | 2017-05-11 05:16 | NUR ---
Pt. alert and oriented. RA. VSS. NO port access. Regular diet. Contact iso for c-diff. Pt. doing bowel prep - first dose pt. dumped last little bit in sink and previous nurse witnessed. Second dose pt. trying to throw it away in the trash without a walker and fell on her butt. Fall witnessed. No pain. VSS. Pt. informed that bed alarm is to be on at all times and to call for help until further notice. BM is chicken broth clear. Pt. was witnessed trying to turn off bed alarm as well. Coloscopy today. NPO at 0500.
[2017-05-11 05:17] LABS: ANION GAP 14.4 (10.0-19.0); CALCIUM 9.2 mg/dL (8.5-10.5); CREATININE 1.2 mg/dL (0.5-1.1); POTASSIUM 3.4 mMol/L (3.7-5.1)
[2017-05-11 05:32] LABS: ABSOLUTE NEUTROPHIL CT (ANC) 2.4 K/uL (1.8-7.8); BANDED NEUTROPHIL # 0.2 K/uL (0.0-0.1); BANDED NEUTROPHILS % 6 %; LYMPHOCYTE # 0.6 K/uL (0.8-4.0); LYMPHOCYTE % 17 %; MONOCYTE # 0.2 K/uL (0.0-1.0); SEGMENTED NEUTROPHIL # 2.2 K/uL (1.8-7.8); SEGMENTED NEUTROPHIL % 68 %
--- NOTE | 2017-05-11 14:00 | NUR ---
RECEIVED REFERRAL FROM LIZZETH EVERETT TO ARRANGE FOR POSSIBLE DISCHARGE NEXT WEEK WITH [facility]. I SPOKE TO RENETTA AND PRESENTED TO HER THE OPTION OF POSSIBLE DISCHARGE HOME WITH [facility]. AND ALSO PRESENTED TO HER THE OPTION OF AAA. PATIENT IS IN AGREEMENT TO THIS. GAVE HER CHOICES OF [facility] AGENCIES AND SHE WOULD LIKE [facility]. PATIENT'S LAST RADIATION IS 04/18/17, PRESENTED TO HER THE OPTION OF HAVING TRANSPORTATION ASSIT THROUGH THE [facility],TO TAKE HER TO RADIATION AND SHE IS IN AGREEMENT TO THIS.
--- NOTE | 2017-05-11 14:30 | NUR ---
SPOKE TO PATIENT'S BROTHER KIKE PER RENETTA'S PREMISSION. HE TELLS ME THAT RENETTA'S HOME IS NOT "FIT TO LIVE IN" THAT HE HAS TAKEN OUT " AT LEAST 50 TRASH BAGS" FULL OF TRASH FROM HER HOUSE AND THAT "SHE COULD NOT SLEEP ON HER BED SHE SLEEPS ON THE FLOOR" HE TELLS ME THAT IT IS NOT AN OPTION FOR HER TO STAY WITH HIM AND THAT HE IS " DONE HELPING HER" SPOKE TO LIZZETH EVERETT SHE NOTIFIED RYAN WITH [facility] AND ASKED HER IF SHE HAS HEARD ON HOW CLOSE PATIENT IS TO GETTING ON MEDICAID. AND DEZ IS GOING TO MEET WITH PATIENT TODAY AND WORK ON CONT TO GET THE INFO SHE NEEDS FOR THE MEDICAID. I SPOKE TO GAGANDEEP AT [facility] SHE TELLS ME THAT BASED ON THE INFO THAT SHE HAS ABOUT RENETTA AND THE HELP SHE NEEDS AND HER LIVING CONDITIONS THAT SHE THINKS SHE CAN GET HER TO AN [facility] BUT WORRIES ABOUT WHETHER SHE WILL QUALIFY FOR MEDICAID. SHE TELLS ME TO KEEP HER UPDATED AND SHE WILL HELP IN ANY WAY THAT SHE CAN. I RECEIVED CALL FROM FATOU WITH THE CANCER CENTER AND SHE DOES NOT THINK THAT THE [facility] WILL BE ABLE TO TRANSPROT RENETTA DUE TO HX OF C-DIFF AND THAT THEY NEED 5 BUSINESS DAY TO ARRANGE THIS.
--- NOTE | 2017-05-11 15:32 | NUR ---
Significant Event:Is A/O.Has upper Rt.chest port that is not accessed.Has SL in LT.forearm.Went for colonoscopy later this morning.Also had radiation therapy today.Has been up with cele forman.well.No c/o pain.No N/V. Follow up:
--- NOTE | 2017-05-11 16:13 | NUR ---
SPOKE TO RENETTA AND SHE IS OK WITH ME CONTACTING HER SISTER MARILOU ([phone]). I ATTEMPTED TO CONATCT HER BUT HAD TO LEAVE A MESSAGE ON VOICE MAIL.
--- NOTE | 2017-05-11 16:20 | NUR ---
RECEIVED CALL FROM RENETTA'S SISTER MARILOU. UPDATED HER ON RENETTA'S LIVING SITUATION AND SHE AGREES THAT RENETTA'S HOME IS NOT "APPROIATE" FOR HER TO LIVE IN. I ASKED HER IF SHE IS OPENED TO HAVING RENETTA STAY WITH HER FOR A SHORT TIME. AND SHE INFORMS ME THAT "THIS IS NOT AN OPTION I HAVE PROBLEMS OF MY OWN" I TOLD HER THAT RENETTA HAD MENTIONED THAT SHE WANTED HER TO BECOME POA AND SHE TELLS ME "I DO NOT THINK THAT IS A GOOD IDEA." WILL CONT TO FOLLOW WORK ON PLACEMENT.
--- NOTE | 2017-05-12 03:45 | NUR ---
Significant Event: PT AO. VSS ON RA, AFEBRILE. AMBULATES WITH SUPERVISION, WALKER. LAST FALL 05/11/17. TOLERATING REGULAR DIET. REMAINS IN CONTACT ISOLATION FOR CDIFF. TOTAL 3 SMALL BM THIS SHIFT. WILL NEED A SHOWER PRIOR TO GOING TO CANCER CENTER THIS AM FOR RADIATION. PORT TO R CHEST, NOT ACCESSED. REMOVED IV TO L WRIST PER PT REQUEST. OK FOR NO IV ACCESS PER MD ORDERS ON CHART. CM WORKING ON POSSIBILITY OF PLACEMENT OR HOME WITH [facility]? Follow up: CONTINUE TO MONITOR
--- NOTE | 2017-05-12 08:30 | NUR ---
RECEIVED CALL FROM KEVIN WITH [facility] SHE INFORMS ME THAT THEY MEET WITH RENETTA AND HER BROTHER AT THE BEDSIDE YESTERDAY AND THEY WERE ABLE TO GIVE THEM COPIES OF RENETTA'S BANK STATEMENT. BUT KEVIN IS CONCERNED BEAUSE THE STATE FOUND THAT PATIENT HAS A AVIVIA ,DARIN, CD AND A ANUIETY. MOE IS WORRIED THAT THIS WILL DELAY PATIENT GETTING ON MEDICAID AND THAT SHE MAY HAVE TO SPEND DOWN. THEY INFORMED PATIENT'S BROTHER THAT HE NEEDS TO GET THE INFO FOR THEM ON THIS AND THEY NEED IT BEFORE THEY CAN PROCEDE.
--- NOTE | 2017-05-12 09:00 | NUR ---
NOTIFIED ALLYN WITH [facility] TO SEE IF THEY WOULD CONSIDER TAKING RENETTA BUT HAD TO LEAVE A MESSAGE FOR HER TO CALL ME.
--- NOTE | 2017-05-12 11:30 | NUR ---
RECEIVED CALL FROM ALLYN WITH [facility] REVARDING PLACEMENT AT [facility] FOR RENETTA. AND ALLYN VOICES CONCERNS TO WHETHER OR NOT PATIENT WILL HAVE CRITIERIA AND SHE WILL HAVE TO TAKE THIS TO THE DIRECTOR AND GET BACK TO ME NEXT WEEK.I SPOKE TO RENETTA AT LENGTH REGARDING HER DISCHARGE PLANS AND GOALS. EXPLAINED TO HER THAT SHE MAY HAVE TO SPEND DOWN BEFORE SHE CAN GET ON MEDICAID AND SHE AGREES TO THIS. I EXPLAINED TO HER THAT GOING BACK TO HER TRAILER HOUSE IS PROBABLY NOT AN OPTION, HER BROTHER AND SISTER TOLD ME THAT HER TRAILER IS NOT REALLY " FIT TO LIVE IN" AND SHE RESPONDS "YES THAT WOULD PROBABLY BE RIGHT, IT IS PRETTY [place]." I PRESENTED TO HER THE OPTION OF GOING TO [facility] TO STAY AND ONCE SHE DOES HER SPEND DOWN THAT SHE MAY QUALIFY FOR MEDICAID AND COULD GET MED WAIVER FOR [facility]. SHE TELLS ME THAT SHE REALLY WOULD LIKE TO GET BACK TO HER TRAILER AND HER CAT. I PRESENTED TO HER THE OPTION OF AAA COULD EVALAUATE HER LIVING SITUATION AT HER TRAILER AND IF SHE NEEDS HELP WITH CLEANING THIS THAT THEY COULD SEND SOMEONE THERE TO CLEAN IT OR HELP HER FIND A BETTER PLACE TO LIVE. SHE TELLS ME THAT SHE IS WILLING TO GO TO AN [facility] FOR SHORT STAY AND WOULD LIKE TO WORK WITH AAA.I SPOKE TO GAGANDEEP WITH [facility] SHE TELLS ME THAT THEY CAN HELP PATIENT TO CLEAN HER TRAILER OR HELP HER TO FIND A BETTER PLACE TO LIVE IF THE TRAILER IS IN TOO [place] OF [place]. KENA IS OPENED TO WHAT [facility] HAS OPENING AND WHO WOULD TAKE HER. COURTNEY SUGGESTS THAT I CONTACT [facility] OR [facility]. I ATTEMPTED TO CONTACT KEIRA YIN TO GET AHOLD OF ANYONE THERE. I NOTIFIFIED [facility] AND SPOKE TO NASRA SHE REPORTS THAT THEY HAVE AN OPENING AND THAT SHE WOULD LIKE FOR ME TO FAX INFO TO HER SHE WILL REVIEW IT AND THEY WILL EVALUATE PATIENT ON MONDAY.
--- NOTE | 2017-05-12 13:08 | NUR ---
A - NUTRITION F/U. NO NEW LABS. WT RELATIVELY STABLE. XRT M-F. IN ISO FOR C DIFF. MEAL INTAKE VARIES 0-75%. ENSURE CONTS QID. NUTRITION STATUS UNCHANGED. D - AT RISK W/ INADEQUATE ORAL INTAKE R/T DECREASED APPETITE AEB INTAKE RECORD. I - GOAL: WT TO REMAIN STABLE. M/E - WILL F/U IN 7 DAYS.
--- NOTE | 2017-05-12 21:26 | NUR ---
Significant Event:Patient is alert and oriented. Patient continues to turn off bed alarm. Talked with the patient about this behavior stated we needed to have it on for her safety and that I would put on the alarm everytime I was in the room. Patient needs to ambulate in the halls 3 times a day. Up in the chair three times a day and to take a shower at least every other day. Took a shower this morning before her procedure at the cancer center. No IV access. Gloves to hands for Rheynods. Up with stand by assist, gait belt and walker. Follow up: ambulation, up in chair, showers
--- NOTE | 2017-05-13 05:17 | NUR ---
Significant Event: Pt alert and oriented. Has rested well throughout the night. Has denied any nausea/vomiting or pain. Has no IV access. In isolation for c-diff. Pt reported 3 stools. Pt will shut bed alarm off, education given to pt and the importance of leaving bed alarm on and calling for assistance. Pt will continue to shut alarm off. Needs to shower every other day, last shower was 05/12. Needs to be up in chair three times daily and needs to ambulate in hallway three times daily. VSS. Follow up:
[2017-05-13 05:30] LABS: ANION GAP 12.2 (10.0-19.0); CALCIUM 8.9 mg/dL (8.5-10.5); POTASSIUM 4.2 mMol/L (3.7-5.1)
--- NOTE | 2017-05-13 20:01 | NUR ---
Significant Event: UP IN ROOM TO BR AND OUT IN [place]. STEADY ON FEET, NEEDS MUCH ENC TO EAT, HAD IMODIUM 4 MG AT 1230 AND 2MG 1 TAB AT 1445 FOR LOOSE STOOLS. DENIES PAIN. REMAINS IN ISOLATION... Follow up:
--- NOTE | 2017-05-14 04:25 | NUR ---
Significant Event: Uneventful night, denies pain, ate only bites of supper. Refusing bed alarm, put on after patient fell asleep. Rest quietly throughout the night. Follow up:Continue to monitor.
--- NOTE | 2017-05-14 15:59 | NUR ---
Gave 4mg Imodium for 1st loose stool of day. Order for 2mg for each subsequent. No IV access. Tolerates small amounts of regular diet. Up w/SBA, GB, walker; fall T-3 days.
--- NOTE | 2017-05-15 04:20 | NUR ---
Significant Event: Uneventful night, 1 small loose stool loperamide given as ordered. Eating only bites of her meal. Denies pain. Follow up: Continue to monitor.
[2017-05-15 05:19] LABS: ALBUMIN 3.1 gm/dL (3.5-5.0); ANION GAP 10.6 (10.0-19.0); CALCIUM 9.1 mg/dL (8.5-10.5); PHOSPHORUS 3.5 mg/dL (2.5-4.9); POTASSIUM 4.6 mMol/L (3.7-5.1)
--- NOTE | 2017-05-15 17:49 | NUR ---
AAOx3. No IV access. Up w/SBA and walker. In isolation for CDiff. Give Imodium after loose BMs; 4mg after first daily loose BM. Tolerating small amounts of regular diet. Offer Ensures and ice water. Refused shower today adamantly as she stated that she is supposed to have on on Monday, tomorrow. Refused bfast and lunch.
--- NOTE | 2017-05-16 05:35 | NUR ---
Significant Event: Pt alert and oriented. Bed alarm on and pt continues to turn off bed alarm and get herself to the BR. Pt has orders to Shower every other day. Needs Shower today. Also pt is to be up in chair and ambulate TID. Follow up: Immodium after each loose stool, starting with 4mg 1st dose then 2mg after that with a total of 8/day.
--- NOTE | 2017-05-16 08:40 | NUR ---
RECEIVED CALL FROM GENEVIEVE AT [facility] SHE REPORTS THAT SHE WILL BE HERE AROUND 1330 TO EVALUATE PATIENT AND WILL GET BACK TO ME TOMORROW MORNING AFTER SHE MEETS WITH THE TEAM TO WHETHER OR NOT THEY CAN ACCEPT PATIENT. WILL CONT TO FOLLOW NEEDED.
--- NOTE | 2017-05-16 09:30 | NUR ---
RECEIVED CALL FROM MOE WITH [facility] SHE IS GOING TO MEET WITH PATIENT THIS AM AND GIVE HER A LIST OF THE OTHER INFO THAT SHE NEEDS FROM HER IN ORDER TO HELP HER GET MEDICAIC. I SPOKE TO RENETTA AND INFORMED HER THAT [facility] WILL COME LATER AND EVAULATE HER FOR THEIR FACILITY. SHE IS IN AGREEMENT TO THIS.
--- NOTE | 2017-05-16 14:29 | NUR ---
SPOKE TO GENEVIEVE FROM [facility] SHE IS GOING TO TAKE THE INFO BACK TO THE TEAM SHE DOES NOT THINK THAT THEY CAN TAKE ANY MORE MED WAVIER PATIENT'S I NOTIFIED JESUS AT [facility] SHE AND SPOKE TO HER ABOUT PATIENT TO SEE IF THEY WOULD BE ALBE TO ACCEPT PATIENT. SHE TELLS ME THAT SHE WILL HAVE TO TAKE THIS TO THE CAMPUS SECURITY OFFICER AND SHE WILL GET BACK TO ME. SHE DOES NOT THINK THAT THEY WILL BE ABLE TO ACCEPT PATIENT DUE TO POSSIBLE MED WAVIER.
--- NOTE | 2017-05-16 17:50 | NUR ---
Significant Event:Only one loose stool this afternoon, not much po intake even with much encouragement, to cancer center in am, tried refusing shower again this am, wants to sleep in til 09am if possible then more agreeable to shower etc Follow up:
--- NOTE | 2017-05-17 05:07 | NUR ---
Significant Event: Pt tired this shift. Ate about 50% of dinner & 100 % of supplement. 1 loose stool this shift and immodium given. Pt to be up in chair for meals and ambulate TID. Turns self frequently. Remains in isolation. Benefiber started yesterday. Follow up: 4 mg Immodium after 1St loose stool in am.
--- NOTE | 2017-05-17 12:00 | NUR ---
SPOKE TO JESUS AT [facility] SHE DOES NOT THINK THAT THEY WILL BE ABLE TO ACCEPT PATIENT. SHE INFORMS ME THAT SHE WILL NEED TO SPEAK TO HER AFTER SCHOOL COUNSELOR BUT SHE DOES NOT THINK THAT SHE CAN ACCEPT PATIENT. I NOTIFIED GENEVIEVE AT [facility] TO SEE IF THEY CAN ACCEPT PATIENT. SHE INFORMS ME THAT SHE WILL NEED TO SPEAK TO HER AFTER SCHOOL COUNSELOR. AND SHE WILL GET BACK TO ME. I RECEIVED CALL FROM SIXTO AT [facility] AND SHE INFORMS ME THAT THEY WILL NOT BE ABLE TO ACCEPT PATIENT.
--- NOTE | 2017-05-17 13:32 | NUR ---
Significant Event: Pt denies pain. Up with standby assist. Had 1 loose stool so far, Immodium 4mg given at 1030. Continues in contact isolation for cdiff. Follow up:
--- NOTE | 2017-05-17 14:00 | NUR ---
SPOKE TO ADAL AT [facility] SHE INFORMS ME THAT THEY WILL NOT BE ABLE TO ACCEPT PATIENT BECAUSE SHE DOES NOT HAVE MEDICAID AND BECAUSE " HER NEED ARE MORE THAN WE CAN MEET AT AN ASSITED LIVING." I NOTIFIED ALLYN AT [facility] SHE IS GOING TO EVALUTAE RENETTA BUT SHE IS WORRIED THAT SHE MAY BE TO GOOD FOR SNF. SHE WILL COME UP LATER AND EVALUATE HER. I ALSO MADE REFERRAL TO [facility] LEE SPOKE TO RUBI, SHE WOULD LIKE FOR ME TO FAX INFO TO HER SHE WILL REVIEW IT AND GET BACK TO ME. SHE INFORMS ME THAT THEY HAVE OPEINGS ON THE SNF AND [facility] SHE WILL REVIEW THE INFO TO SEE IF SHE IS APPROIATE FOR ANY OF THE LEVEL OF CARES THAT THEY HAVE TO OFFER. INFO FAXED TO RUBI.
--- NOTE | 2017-05-18 05:36 | NUR ---
Significant Event: Patient alert and oriented x4. Up with stand by assist, and walker. Alerted pt that we need to have the bed alarm on, and pt stated "I'm just going to turn it off". Pt reports no stool this shift. Waiting for placement. Vitals stable and on room. Numbness and tingling to hands and feet from Reynaud's. C-diff positive. Radiation monday -monday. Daily weight Follow up:
--- NOTE | 2017-05-18 14:00 | NUR ---
NOTIFED RUBI AT [facility] TO SEE IF THEY HAVE MADE A DECSION REGARDING WHETHER OR NOT THEY CAN ACCEPT RENETTA. RUBI DIRECTS ME TO SPEAK TO HERMILA THE . WHEN I SPOKE TO HERMILA SHE TELLS ME THAT THEY HAVE NOT HAD TIME TO REVIEW THE INFO THAT I FAXED TO HER, SHE WILL MEET WITH THE TEAM TO REVIEW IT AND GET BACK TO ME. SHE TELLS ME BASED ON THE INFO THAT SHE HAS BEEN TOLD BY RUBI SHE DOES NOT THINK THAT THEY CAN ACCEPT PATIENT. BUT SHE WILL LET ME KNOW WHAT THEY DECIDE ONCE THEY REVIEW IT. I SPOKE TO ALLYN FROM [facility] AND SHE TELLS ME THAT THEY WILL NOT BE ABLE TO ACCEPT PATIENT.I SPOKE TO SHUBHAM AT [facility] SHE INFORMS ME THAT THEY CAN NOT ACCEPT PATIENT DUE TO POSSIBLE MED WAIVER AND THEY HAVE ALL THE MED PATIENT'S THAT THEY CAN ACCEPT. I MADE REFERRAL TO ROSS AT [facility] SHE TELLS ME THAT SHE WILL MEET WITH THE TEAM AND GET BACK TO ME TO WHETHER OR NOT THEY CAN ACCEPT PATIENT. WILL CONT TO FOLLOW NEEDED.
--- NOTE | 2017-05-18 15:15 | NUR ---
RECIEVED CALL FROM BLANCA AT [facility] SHE REPORTS THAT THEY WILL COME AND EVALUATE RENETTA TOMORROW. SHE TELLS ME THAT RENETTA NEEDS TO HAVE A POA BEFORE THEY CAN ACCEPT HER. I SPOKE TO RENETTA AND UPDATED HER ON THIS SHE IS IN AGREEMENT TO MEETING WITH SOMEONE FROM [facility] AND SHE IS IN AGREEMENT TO HAVING A POA. SHE NOTIFIED HER SISTER MARILOU AND SPOKE TO HER ON THE PHONE AND SHE AGREES TO BEING RENETTA'S POA. I GAVE RENETTA AN ADVANCED DIRECT FORM TO COMPLETE. WILL CONT TO FOLLOW NEEDED.
--- NOTE | 2017-05-18 15:45 | NUR ---
SPOKE TO KEVIN WITH [facility] SHE TELLS ME THAT SHE STILL NEEDS INFO FROM [employer] AND US BACK AND THAT SHE HAD TOLD RENETTA THAT SHE NEEDS THIS WHEN SHE MEET WITH HER ON MON. I ASKED RENETTA IF SHE HAS GOTTEN THIS INFO AND SHE TELLS ME THAT SHE HAS, I HELPED HER CALL MOE ON THE PHONE SO THAT SHE CAN VISIT WITH MOE ABOUT THIS.
--- NOTE | 2017-05-18 16:58 | NUR ---
Significant Event:PT. ALERT AND COOPERATIVE. UP TO CHAIR AND HALLWAY. DENIES PAIN. VOIDS PER BR AND HAD ONLY ONE BM TODAY WITH IMMODIUM GIVEN PO. PT STATES BM WAS MORE FORMED BUT NURSE DIDN'T SEE IT. RADIATION M-F. REGULAR DIET. ISOLATION FOR C-DIFF. RIGHT CHEST PORT NOT ACCESSED. WAITING FOR PLACEMENT. Follow up:
--- NOTE | 2017-05-19 04:36 | NUR ---
Significant Event: A/O X3 AND COOPERATIVE WITH CARES. DENIES PAIN. BED ALARM TURNED ON BUT PATIENT TURNS OFF. HAS REYNAUD'S AND WEARS GLOVES, NUMBNESS & TINGLING TO HANDS. VITALS Q SHIFT. VSS AND AFEBRILE. BM X2 THIS SHIFT. PORT NOT ACCESSED. WAITING ON PLACEMENT. PATIENT TO FILL OUT ADVANCED DIRECTIVE PAPERWORK AND HAD REMINDERS TO FILL OUT. Follow up:
--- NOTE | 2017-05-19 12:00 | NUR ---
GLYNN FROM [facility] HERE TO EVALUTE PATIENT AND MEET WITH HER. SHE WILL TAKE THE INFO TO THE TEAM AND WILL GET BACK TO ME ON MONDAY. SHE ANTICIPATES THAT THEY WILL ACCEPT PATIENT BUT SHE HAS TO MEET WITH THE TEAM TO CONFIRM THIS. SHE WILL CONTACT ME ON MONDAY WITH THE DECISION.
--- NOTE | 2017-05-19 12:43 | NUR ---
I have examined the student charting and find it acceptable. SHELDON Sen
--- NOTE | 2017-05-19 14:09 | NUR ---
A - NUTRITION F/U. WT STAYS B/T 66.8 KG AND 68.1. XRT M-F. DIET: REGULAR W/ ENSURE QID. MEAL INTAKE USUALLY 50%, OCC REFUSED. AWAITING PLACEMENT. D - AT RISK W/ INADEQUATE ORAL INTAKE R/T DECREASED APPETITE AEB INTAKE RECORD. I - GOAL: 50% MEAL INTAKE 75-100% SUPPLEMENT INTAKE. M/E - WILL F/U ON WT AND INTAKE IN 7-10 DAYS.
--- NOTE | 2017-05-19 16:33 | NUR ---
Significant Event:Is A/O.No c/o pain.No N/V.No stools yet today.Sally winnie came to see her today & sounds like she is going to go there when dismissed.Was to radiation today.Is up in room & amb in [place] with walker,does well. Follow up:
--- NOTE | 2017-05-20 03:39 | NUR ---
Significant Event: AO. VSS ON RA, AFEBRILE. Q SHIFT ASSESSMENT. NO IV ACCESS. REMAINS IN CONTACT ISOLATION FOR CDIFF. DAILY WT. TOLERATING REGULAR DIET. AMBULATES WITH WALKER. PT TURNS BED ALARM OFF. AWAITING PLACEMENT. Follow up: CONTINUE TO MONITOR
--- NOTE | 2017-05-20 15:44 | NUR ---
Significant Event: Patient is alert and oriented x3. VSS and on RA. Denies pain or nausea. Will try and shut the bed alarm off if you put it on. Re-educated the patient to use the call light if she needs to go to the bathroom. No IV access. States she will shower tomorrow, will be here to follow through. Rested in bed majority of the day. Waiting on placement.
--- NOTE | 2017-05-21 04:01 | NUR ---
Significant Event: AO. VSS ON RA, AFEBRILE. NO IV ACCESS. PT REFUSES BED ALARMS, WILL TURN THEM OFF. UP INDEPENDENT WITH WALKER. WILL CALL IF BM AND NEEDING IMMODIUM. NO BM THIS SHIFT. TOLERATING REGULAR DIET. REMAINS IN CONTACT ISOLATION FOR CDIFF. AWAITING PLACEMENT. Follow up: CONTINUE TO MONITOR, Q SHIFT VITALS
--- NOTE | 2017-05-21 16:14 | NUR ---
Significant Event: Patient is alert and oriented x3. VSS and on RA. Up independtly. Reminders given to call to go the restroom. Will shut off the bed alarm when you put it on. Shower was completed this morning. Remains in isolation, but did not have any stools today. Has a port but is not accessed. Continuing to encourage food intake. Voiding adequately. Awaiting on placement.
--- NOTE | 2017-05-22 04:09 | NUR ---
Significant Event: PT AO. VSS ON RA, AFEBRILE. Q SHIFT VITALS. NO IV ACCESS. REMAINS IN CONTACT ISOLATION FOR CDIFF. STOOLS X2, IMMODIUM GAVE AFTER EACH. TOLERATING REGULAR DIET. NEEDS ENCOURAGEMENT TO ORDER MEALS. REFUSES BED ALARMS, WILL TURN IT OFF. AMBULATES INDEPENDENT WITH WALKER. STILL WAITING ON PLACEMENT. Follow up: CONTINUE TO MONITOR
--- NOTE | 2017-05-22 09:00 | NUR ---
RECEIVED CALL FROM ROSS AT [facility] SHE INFORMS ME THAT THEY WILL CONTACT ME TOMORROW AM WITH DETERMINATION TO WHETHER OR NOT THEY CAN ACCEPT PATIENT. AT THIS TIME SHE THINKS THAT THEY WILL BE ABLE TO ACCEPT RENETTA, WITH PLANS OF HER BEING ADMITTED ON MON. BLANCA REPORTS THAT SOMEONE WITH CONTACT ME TOMORROW WITH THE DECISION. I SPOKE TO GAGANDEEP WITH [facility] AND UPDATED HER ON THE DISCHARGE PLANS.
--- NOTE | 2017-05-22 14:30 | NUR ---
SPOKE TO RENETTA AND UPDATED HER THAT I WILL HAVE A CONFIRMATION TOMORROW FROM [facility] REGARDING TO WHETHER OR NOT THEY CAN ACCEPT PATIENT. RENETTA WAS HOPING THAT SHE COULD BE DISCHARGED TODAY. SHE IS HOPING THAT SHE CAN GO TO [facility]. YANI HAS COMPLETED HER POA PAPER WORK AND COPY WAS PLACED ON THE CHART.
--- NOTE | 2017-05-22 16:43 | NUR ---
Significant Event: Patient only had 1 BM today--immodium given. Refuses to call for assistance. Denies pain, needs. Worked with therapy today. Needs encouraged to increase oral intake. Infusaport available but not accessed. Continues in isolation for cdiff. Follow up: Continue to monitor.
--- NOTE | 2017-05-23 04:05 | NUR ---
Significant Event: PT AO. VS Q SHIFT. AMBULATES INDEPENDENT WITH WALKER. REFUSES BED ALARMS. NO STOOL THIS SHIFT. REMAINS IN CONTACT ISOLATION FOR CDIFF. HAS PORT, NOT ACCESSED. TOLERATING REGULAR DIET. REFUSES BENEFIBER. AWAITING PLACEMENT. Follow up: CONTINUE TO MONITOR
[2017-05-23 05:22] LABS: HEMATOCRIT 30.4 % (33.0-46.0); HEMOGLOBIN 9.4 g/dL (10.0-15.0); MCH 27.2 pg (27.0-34.0); MCHC 30.9 gm/dL (32.0-36.5); MCV 88.1 fl (83.0-98.0); MPV 9.4 fl (9.4-12.4); PLATELET COUNT 165 K/uL (150-450); RBC 3.45 M/uL (3.50-5.50); RDW-CV 13.2 % (11.9-14.6); WBC 2.1 K/uL (4.0-11.0)
[2017-05-23 05:33] LABS: ANION GAP 12.1 (10.0-19.0); CREATININE 0.9 mg/dL (0.5-1.1); POTASSIUM 4.1 mMol/L (3.7-5.1)
[2017-05-23 05:54] LABS: ABSOLUTE NEUTROPHIL CT (ANC) 1.2 K/uL (1.8-7.8); BANDED NEUTROPHIL # 0.2 K/uL (0.0-0.1); BANDED NEUTROPHILS % 8 %; LYMPHOCYTE # 0.6 K/uL (0.8-4.0); LYMPHOCYTE % 27 %; MONOCYTE # 0.3 K/uL (0.0-1.0); SEGMENTED NEUTROPHIL % 49 %
--- NOTE | 2017-05-23 12:00 | NUR ---
RECEIVED CALL FROM BLANCA WITH [facility], SHE REPORTS THAT THEY WILL ACCEPT PATIENT AND THAT SHE WILL HAVE TO SPEND DOWN AND ONCE SHE GETS ON MED WAVIER THAT THEY WILL ACCEPT THE MED WAVIER. SHE WOULD NEED TO PAY $3000.00 A MONTH OUT OF POCKET.I SPOKE TO RENETTA AND UPDATED HER ON THIS AND SHE INFORMS ME THAT SHE IS NOT GOING TO PAY OUT OF POCKET FOR THIS. SHE TELLS ME " IF I PAY THE $3000.00 THAN I WILL HAVE TO GET INTO MY ANNUITY AND PAY THE REST OF MY BILLS AND I AM NOT GOING TO US IT." SHE TELLS ME THAT SHE WILL GO BACK TO HER TRAILER AND THAT SHE HAS LIVED THERE BEFORE AND " DID JUST FINE" I NOTIFIED GAGANDEEP AT [facility] AND SHE INFORMS ME THAT IF RENETTA GOES HOME SHE CAN NOT BE INVOLVED SHE ONLY WORKS WITH MED WAVIER PATIENT'S AND THAT THE CM THAT WOULD SEE HER THROUGH [facility] WILL PROBABLY NOT BE ABLE TO SEE HER." BECAUSE THEY ARE BUSY AND ARE NOT TAKING ANY MORE PATIENT'S. I ATTEMPTED TO SPEAK TO BLANCA AT [facility] TO UPDATE HER BUT HAD TO LEAVE A MESSAGE FOR HER TO CONTACT ME.
--- NOTE | 2017-05-23 14:00 | NUR ---
RECEIVED CALL FROM BLANCA AT [facility] AND UPDATED HER THAT RENETTA IS REFUSING TO GO TO [facility]. I UPDATED LIZZETH EVERETT AND SHE TELLS ME TO ARRANGE FOR PATIENT TO GO HOME TOMORROW WITH [facility]. I SPOKE TO RENETTA AND SHE STILL IS NOT OPENED TO GOING TO [facility]. I PRESENTED TO HER THE OPTION OF C AND SHE IS IN AGREEMENT TO THIS. GAVE HER CHOICES OF [facility] AGENCIES AND SHE CHOOSE [facility]. REFERRAL MADE TO [place] WITH [facility] SHE WILL COME AND MEET WITH PATIENT. SHE REPORTS THAT THEY CAN SEE PATIENT TOMORROW OR THUR. NOTIFIED PATIENT'S SISTER ALFRED PER RENETTA'S PREMISSION AND UPDATED HER THAT SUNSHINE HAS DECIDED NOT TO GO TO [facility]. ALFRED TELLS ME THAT SHE WISHES THAT RENETTA WOULD TAKE THE OPTION OF [facility] BUT FEELS THAT RENETTA CAN MAKE HER OWN DECISIONS AND THAT IF SHE WANTS TO GO BACK TO HER TRAILER" THAT IS HER BUSINESS."
--- NOTE | 2017-05-23 18:12 | NUR ---
Pt has port but is not accessed. Pt ambulates unassisted to restroom, one person assist in hallway with walker. Pt alert and oriented x3, slept most of afternoon. No breakfast, ate only small jello for lunch. Vital signs stable and on room air. She has not showered yet, needs to shower. Denies pain.
--- NOTE | 2017-05-23 18:49 | NUR ---
[facility] REFERRAL MADE TO THE [place]. SPOKE TO MICHELLE WITH [facility]. SHE REPORTS THAT IF PATIENT DOES NOT ACCEPT THE SERVICES FROM [facility] THAT THE [facility] NURSE WILL NEED TO CONTACT [facility] AND THEY WILL HAVE TO GET INVOLVED. SHE TELLS ME THAT SINCE WE HAVE C GOING IN TO PROVIDE SERIVICES THEY PROBABLY WILL NOT GET INVOLVED UNLESS [facility] CONTACTS THEM WITH CONCERNS.
--- NOTE | 2017-05-24 04:15 | NUR ---
Significant Event: AO. VSS ON RA, AFEBRILE. Q SHIFT VITALS. UP AD SJ WITH WALKER. TURNS OFF BED ALARMS AND REFUSES TO CALL. BM X1 THIS SHIFT, IMMODIUM. PORT NOT ACCESSED. REMAINS IN CONTACT ISOLATION FOR CDIFF. PLAN IS HOME WITH [facility] TODAY. Follow up:
--- NOTE | 2017-05-24 10:45 | NUR ---
Social visit with patient today. She is planning on returning home today. I did explain that both the physican and MARGUERITE are recommending that she not drive home. She states that she "is aware of that" but states "I am going to drive home myself anyway." I tried to explain that it may not be safe for her to drive since she has not driven for over 2 months. She states "I don't live that far I'll be fine I just live over at [facility]." I updated Corrina EVERETT. I also called and updated Gerard HAYES with [facility] that patient is being discharged. I also updated her on the [facility] referral.
[2017-05-24] MEDS ORDERED: COLESTID1 G1 PO (12:00)
[2017-05-24] MEDS ORDERED: REMERON15 MG PO (12:02)
[2017-05-24] MEDS ORDERED: BENEFIBER)(NUTR1 PKT PO (12:02)
[2017-05-24] MEDS ORDERED: K-TAB 10MEQ10 MEQ PO (12:04)
[2017-05-24] MEDS ORDERED: FLORASTOR250 MG PO (12:05)
[2017-05-24] MEDS ORDERED: IMODIUM2 MG PO (12:09)
--- NOTE | 2017-05-24 13:30 | NUR ---
Significant Event: Patient over cancer center and back. Dr. Raines in and said patient was ok to go home. Dr. Raines told patient that if she didn't have anyone to drive her home that we could provide her with a taxi voucher. Nurse was in the room when Dr. Raines said this and patient stated that she had her car here and could drive her ownself home. Dr. Raines explained that it would be safer if she had someone drive her home as she has been in the hospital for 2 months and had needed to recover and get her strength back. Patient refused taxi voucher and said she would need her car and was just fine to drive herself home. Dismissal instructions processed and reviewed with patient by virtual nurse. QUALITY CONTROL SYSTEMS MANAGER in and took patient's vitals and had patient sign dismissal papers. QUALITY CONTROL SYSTEMS MANAGER then took patient in a wheel chair to the front doors for dismissal and out to her car. Car would not start per report from QUAL[employer]S MANAGER. Patient called a taxi and paid for it herself after stating that she had the money for it to [facility]management. Patient dismissed to home.
--- NOTE | 2017-05-24 15:51 | NUR ---
DISCHARGE: D: ORDERS RECEIVED FOR THE PATIENT TO BE DISCHARGED TO HOME TODAY. I: DISMISSAL INSTRUCTIONS WERE PREPARED AND REVIEWED WITH THE PATIENT VIRTUALLY. THE FOLLOWING INFORMATION WAS DISCUSSED INCLUDING [employer]J TEACHING SHEETS PROVIDED: C.DIFF, COLESTIPOL HCL, MIRTAZAPINE, FLORASTOR, IMODIUM, AND STEP BY STEP-WASHING YOUR HANDS. REVIEWED ALL NEW PRESCRIPTIONS AND THE PATIENT WILL NEED TO GET THE FILLED AT HER PHARMACY OF CHOICE TODAY. ALSO, INSTRUCTED THE PATIENT THAT THE DISMISSING DOCTOR WROTE NO DRIVING UNTIL CLEARED BY DR. ORTIZ BUT THE PATIENT INSISTS SHE IS DRIVING HERSELF HOME IN HER OWN CAR THAT IS IN THE PARKING LOT. R: THE PATIENT VERBALZED UNDERSTANDING OF THE DISMISSAL EDUCATION AT THE TIME OF TEACHING WITH NO FURTHER QUESTIONS. P: THE ABOVE INFORMATION WAS SHARED WITH THE PRIMARY NURSE AND THE CHARGE NURSE THAT THE DISMISSAL EDUCATION WAS COMPLETED. [facility] PATIENT IS READY FOR DISHCARGE TO THE FRONT DOOR VIA WHEEL CHAIR BY NURSING STAFF.
== END 2017-05-24 14:15 | disposition home health service (06) | DRG 371 ==
LOC: GMSU 14:16
PROVIDERS: Family Medicine; Hospitalist; Internal Medicine; Nurse Practitioner Family; ADMIT Internal Medicine
PROC: DU0 Radiation Therapy, Female Reproductive System, Beam Radiation (ICD-10-PCS; principal; 2017-04-11)
PROC: 0DBE8ZX Excision of Large Intestine, Via Natural or Artificial Opening Endoscopic, Diagnostic (ICD-10-PCS; 2017-05-11)
DX: A04.7 Enterocolitis due to Clostridium difficile (principal); D61.810 Antineoplastic chemotherapy induced pancytopenia; I50.33 Acute on chronic diastolic (congestive) heart failure; E44.0 Moderate protein-calorie malnutrition; K52.0 Gastroenteritis and colitis due to radiation; I13.0 Hypertensive heart and chronic kidney disease with heart failure and stage 1 through stage 4 chronic kidney disease, or unspecified chronic kidney disease; F33.2 Major depressive disorder, recurrent severe without psychotic features; E11.22 Type 2 diabetes mellitus with diabetic chronic kidney disease; E86.0 Dehydration; C54.1 Malignant neoplasm of endometrium; N18.9 Chronic kidney disease, unspecified; E87.6 Hypokalemia; E78.5 Hyperlipidemia, unspecified; I73.00 Raynaud's syndrome without gangrene; R05 Cough; W88.1XXA Exposure to radioactive isotopes, initial encounter; D64.81 Anemia due to antineoplastic chemotherapy; D63.1 Anemia in chronic kidney disease; Z68.30 Body mass index [BMI] 30.0-30.9, adult
CPT/HCPCS: C1717; J1642; J1650; J2001; J2405; J2550; J3370; J3475; J3480; J7030; J7040; J7050; J7060; Q0167